=== PATIENT | female | born 1965 | race Caucasian/White ===

== ENCOUNTER 2019-10-04 03:01 | Outpatient (CLI) | payer BC, SELFPAY ==
--- NOTE | 2019-10-04 16:24 | DI.MAMMO_ITS ---
EXAM: MG MAMMO SCREENING CLINICAL HISTORY: SCREENING, Z12.31, [facility], Z00.00 TECHNIQUE: Bilateral full field digital CC and MLO mammographic images were obtained with 3D tomosyn thesis and utilizing computer aided detection (CAD). COMPARISON: Available for comparison. FINDINGS: Masses/Architectural Distortion: None seen. Microcalcifications: No suspicious pleomorphic-type are seen. Skin Thickening/Nipple Retraction: None. IMPRESSION: 1. No significant interval change with no specific features of malignancy noted. 2. Unless there is more urgent need, screening mammography is recommended, as per [employer] [employer] guidelines. ACR BI-RAD Category- 1 Negative Breast Density - Category B - Scattered areas of fibroglandular density A negative radiographic report should not delay biopsy if a dominant or clinically suspicious mass is present. Up to ten percent of cancers are not identified on mammography. A negative report may reinforce clinical impression. Adenosis and dense breasts may obscure an underlying neoplasm. False positive reports average 6 to 10%. Patient will receive a letter notifying them of these results.
== END 2019-10-04 03:21 ==
PROVIDERS: PCP Nurse Practitioner Family; Visit Provider Nurse Practitioner Family
DX: Z00.00 Encounter for general adult medical examination without abnormal findings (principal); Z12.31 Encounter for screening mammogram for malignant neoplasm of breast
CPT/HCPCS: 77063; 77067

== ENCOUNTER 2020-05-22 04:38 | Outpatient (CLI) | payer BC, SELFPAY ==
[2020-05-22 11:17] LABS: Abs Immature Grans 0.03 10^3/uL (0.0-0.06); Absolute Basophil Count 0.05 10^3/uL (0.0-0.2); Absolute Lymphocyte Count 1.69 10^3/uL (1.2-3.4); Absolute Monocyte Count 0.33 10^3/uL (0.1-0.8); Absolute Neutrophil Count 4.33 10^3/uL (1.2-6.7); Basophils % 0.8; Eosinophils % 1.5; HCT 41.5 % (36.0-46.0); HGB 13.4 g/dL (11.2-15.7); Immature Grans % 0.5; Lymphocytes % 25.9; MCHC 32.3 % (32.0-36.0); MCV 92.8 fL (80-95); MPV 9.9 fL (8.0-11.0); Monocytes % 5.1; Neutrophils % 66.2; Nucleated RBC 0 %; Platelet Count 295 10^3/uL (130-400); RBC 4.47 10^6/uL (3.93-5.22); RDW 12.8 % (11.7-14.6); WBC 6.53 10^3/uL (4.4-10.8)
[2020-05-22 12:15] LABS: ALT 38 U/L (14-59); AST 21 U/L (15-37); Albumin 4.4 g/dL (3.4-5.0); Alkaline Phosphatase 72 U/L (46-116); Anion Gap 7.4 mmol/L (3-11); BUN 13 mg/dL (7-18); Bilirubin, Total 0.7 mg/dL (0.2-1.0); CO2 29.6 mmol/L (21.0-32.0); CREATININE 0.87 mg/dL (0.55-1.02); Calcium 9.6 mg/dL (8.5-10.1); Chloride 104 mmol/L (98-107); Glucose 88 mg/dL (74-106); Potassium 4.6 mmol/L (3.5-5.1); Sodium 141 mmol/L (136-145); TSH 1.26 uIU/mL (0.36-3.74); Total Protein 7.3 g/dL (6.4-8.2)
[2020-05-22 17:14] LABS: Rheumatoid Factor <8.6 IU/mL (<12.0)
[2020-05-23 11:05] LABS: C4 Complement 20 mg/dL (13-39)
[2020-05-23 14:18] LABS: ANA Interpretation Negative (Negative)
[2020-05-24 13:01] LABS: dsDNA Ab, IgG <12.3 IU/mL (<30.0)
== END 2020-05-22 04:58 ==
PROVIDERS: PCP Nurse Practitioner Family; Visit Provider Internal Medicine Rheumatology
DX: R76.8 Other specified abnormal immunological findings in serum (principal); E06.9 Thyroiditis, unspecified
CPT/HCPCS: 36415; 80053; 84443; 85025; 86038; 86160; 86225; 86431

== ENCOUNTER 2021-05-15 03:49 | Outpatient (CLI) | payer BC, SELFPAY ==
[2021-05-15 09:43] LABS: Abs Immature Grans 0.01 10^3/uL (0.0-0.06); Absolute Basophil Count 0.05 10^3/uL (0.0-0.2); Absolute Eosinophil Count 0.16 10^3/uL (0.0-0.7); Absolute Lymphocyte Count 1.98 10^3/uL (1.2-3.4); Absolute Monocyte Count 0.36 10^3/uL (0.1-0.8); Absolute Neutrophil Count 3.69 10^3/uL (1.2-6.7); Basophils % 0.8; Eosinophils % 2.6; HCT 41.3 % (36.0-46.0); HGB 13.6 g/dL (11.2-15.7); Immature Grans % 0.2; Lymphocytes % 31.7; MCH 29.7 pg (27.0-33.0); MCHC 32.9 % (32.0-36.0); MCV 90.2 fL (80-95); MPV 9.8 fL (8.0-11.0); Monocytes % 5.8; Neutrophils % 58.9; Nucleated RBC 0 %; Platelet Count 286 10^3/uL (130-400); RBC 4.58 10^6/uL (3.93-5.22); RDW 12.7 % (11.7-14.6); RDW-SD 42.4 fL; WBC 6.25 10^3/uL (4.4-10.8)
[2021-05-15 09:45] LABS: ESR < 1 mm/hr (0-30)
[2021-05-15 11:25] LABS: ALT 38 U/L (14-59); AST 22 U/L (15-37); Albumin 4.2 g/dL (3.4-5.0); Alkaline Phosphatase 61 U/L (46-116); Anion Gap 8.7 mmol/L (3-11); BUN 14 mg/dL (7-18); Bilirubin, Total 0.6 mg/dL (0.2-1.0); C-Reactive Protein < 0.05 mg/dL (0.0-0.3); CO2 27.3 mmol/L (21.0-32.0); CREATININE 0.8 mg/dL (0.55-1.02); Calcium 9.2 mg/dL (8.5-10.1); Chloride 104 mmol/L (98-107); Glucose 85 mg/dL (74-106); Potassium 4.2 mmol/L (3.5-5.1); Sodium 140 mmol/L (136-145); Uric Acid 4.3 mg/dL (2.6-6.0)
[2021-05-15 17:14] LABS: Rheumatoid Factor <8.6 IU/mL (<12.0)
[2021-05-15 21:56] LABS: Thyroglobulin Antibody <15 U/mL (<=60); Thyroperoxidase Antibody 74 U/mL (<=60)
[2021-05-16 11:50] LABS: dsDNA Ab, IgG <12.3 IU/mL (<30.0)
[2021-05-17 14:07] LABS: ANA Interpretation Positive (Negative); ANA Titer Pattern 1:80 Homogeneous
== END 2021-05-15 03:50 | disposition home or self-care (01) ==
LOC: LBO 03:49
PROVIDERS: PCP Nurse Practitioner Family; Visit Provider Internal Medicine Rheumatology
DX: M25.50 Pain in unspecified joint (principal); E06.9 Thyroiditis, unspecified
CPT/HCPCS: 36415; 80053; 85652; 86376; 84550; 85025; 86038; 86140; 86225; 86431

== ENCOUNTER 2021-05-28 13:32 | Outpatient (REF) | payer BC, SELFPAY ==
[2021-05-28 20:06] LABS: TSH (W/Ref FT4) 1.31 uIU/mL (0.36-3.74)
[2021-05-29 16:54] LABS: T3,Free 3.1 pg/mL (2.8-5.3)
== END 2021-05-28 13:33 | disposition home or self-care (01) ==
LOC: LBN 13:32
PROVIDERS: PCP Nurse Practitioner Family; Visit Provider Nurse Practitioner Family
DX: Z13.29 Encounter for screening for other suspected endocrine disorder (principal)
CPT/HCPCS: 84443; 84481

== ENCOUNTER 2022-05-16 01:08 | Outpatient (CLI) | payer BC, SELFPAY ==
--- OUTSIDE RECORDS SUMMARY | 2022-05-16 01:30 | XMS_ITS | Encounter Summary ---
:1965 Author Organization [facility] Address [address] [place] [id number] Care Team Providers Name Role Phone Norbert Cortney FABIOLA Primary Care Provider Ki Evans MD Unavailable Reason for Visit Reason Onset Date Comments Pre-visit Orders 05/13/2021 Encounter Details Date Type Department Care Team Description 05/13/2021 Telephone [facility] Scooter Cowan Chi, MD Pre-visit Orders Rheumatology & Immunology [address], [address] [place], [place] [address] [place] [address] [phone] (Wo rk) Social History Tobacco Use Types Packs/Day Years Used Date Never Smoker Smokeless Tobacco: Never Used Alcohol Use Standard Drinks/Week Comments Yes 0 (1 standard drink = 0.6 oz pure alcoho l) 1 wine or liquor with dinner Alcohol Habits Answer Date Recorded How often do you have a drink containing Not asked alcohol? How many drinks containing alcohol do you Not asked have on a typical day when you are drinking? How often do you have six or more drinks Not asked on one occasion? Comment: 1 wine or liquor with dinner 05/18/2019 Sex Assigned at Date Recorded Not on file documented as of this encounter Functional Status Functional Status Response Date of Assessment Because of a physical, mental, or emotional condition, No 05/18/2019 does this person have difficulty doing errands alone such as visiting a doctor's office or shopping? Cognitive Status Response Date of Assessment Because of a physical, mental, or emotional condition, Yes 05/25/2020 does this person have serious difficulty concentrating, remembering, or making decisions? documented as of this encounter Miscellaneous Notes Telephone Encounter - Unique Golden RN - 05/13/2021 1654 EDT Lab orders faxed. Spoke with pt who will get lab work done before 05/22 FU appt. elephone Encounter - Scooter Cowan Chi, MD - 05/13/2021 1624 EDT Signed external lab orders. Please fax to her lab- [facility]? Her appt here is 05/22. elephone Encounter - Liz Pearce - 05/13/2021 1211 EDT Patient is calling to have her lab orders sent to [facility]. Please call to let her know when that has been done. documented in this encounter Plan of Treatment Upcoming Encounters Date Type Specialty Care Team Description 05/21/2022 Office Visit Rheumatology Scooter Cowan Chi, MD 111 [facility], [facility], [address] [place], [place] [phone] (Wo rk) documented as of this encounter Visit Diagnoses Diagnosis Positive MASSIEL (antinuclear antibody) - Pr imary Other and unspecified nonspecific immuno logical findings Thyroiditis Thyroiditis, unspecified Polyarthralgia Pain in joint, multiple sites documented in this encounter Care Teams Die Stamping Press Operator Relationship Specialty Start Date End Date Cortney Toussaint FNP PCP - General 01/20/19 [address] [place], [place] [address] Ki Evans MD 03/12/18 [address] [place] [address] documented as of this encounter
--- OUTSIDE RECORDS SUMMARY | 2022-05-16 01:30 | XMS_ITS | Encounter Summary ---
:1965 Author Organization [facility] Address [address] [place] [address] Care Team Providers Name Role Phone FreedomCortney grande FABIOLA Primary Care Provider Ki Evans MD Unavailable Reason for Visit Reason Comments Follow-up 1 year Joint Pain Right knee pain, left should er, Encounter Details Date Type Department Care Team Description 05/22/2021 Office Visit [facility] Scooter Cowan Chi, MD Primary osteoarthritis involving multipl e joints (Primary Dx); Rheumatology & [address] [place] [address] Positive AN A (antinuclear antibody); Immunology - [facility] Thyroiditis [address], [address] [place], [place] [address] [place] [address] [phone] Social History Tobacco Use Types Packs/Day Years [...] on file documented as of this encounter Last Filed Vital Signs Vital Sign Reading Time Taken Comments Blood Pressure 118/62 05/22/2021 1241 EDT Pulse 68 05/22/2021 1241 EDT Temperature - - Respiratory Rate 16 05/22/2021 1241 EDT Oxygen Saturation - - Inhaled Oxygen Concentration - - Weight 79.4 kg (175 lb) 05/22/2021 1241 EDT Height 172.1 cm (5' 7.75) 05/22/2021 1241 EDT Body Mass Index 26.81 05/22/2021 1241 EDT documented in this encounter Functional Status Functional Status Response Date of Assessment Because of a physical, mental, or emotional condition, No 05/18/2019 does this person have difficulty doing errands alone such as visiting a doctor's office or shopping? Cognitive Status Response Date of Assessment Because of a physical, mental, or emotional condition, No 05/22/2021 does this person have serious difficulty concentrating, remembering, or making decisions? documented as of this encounter Patient Instructions Patient InstructionsScooter Cowan Chi, MD - 05/22/2021 13:00 EDT Continue current meds. documented in this encounter Progress Notes Scooter Cowan Chi, MD - 05/22/2021 1300 EDT Images from the original note were not included. Subjective: Patient ID: Eloise Burgos is an 55 y.o. female. Chief Complaint Patient presents with ??? Follow-up 1 year ??? Joint Pain Right knee pain, left shoulder, Assessment at last visit: Osteoarthritis- Joint pains have been mild on hydroxychloroquine. Because she has had increased diarrhea in recent months, advised she try decreasing hydroxychloroquine to 200 mg once a day from twice daily. Continue annual eye exams for hydroxychloroquine. Past history of + MASSIEL, low + dsDNA which have all normalized and patient has never met criteria for lupus or other autoimmune disease.. Thyroiditis- Manifest by elevated TPO antibody. PCP just needs to keep an eye on the TSH annually. Since last visit: 05/25/2020 She con't hydroxychloroquine bid dosing since her diarrhea improved with gluten free diet. Has R knee pain after prolonged kneeling painting rooms in the house. Left shoulder aches with use. Taking CBDwith tumeric which helps. No rashes, rare oral ulcer. Denies Raynaud's. Denies any other joint pains or swelling. AM stiffness: 15 min Physical activity: morning yoga. - her daily activities keep her active. Takes stairs frequently at home. Has 2 grown kids in their 20s away from home as well as 2 teens at home. 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 She babysits 1 yo, 3 yo granddaughters. Has help with housechores. Patient Active Problem List Diagnosis ??? Primary osteoarthritis involving multiple joints No past medical history on file. No past surgical history on file. Outpatient Medications Marked as Taking for the 05/22/21 encounter (Office Visit) with Scooter Cowan Chi, MD Medication Sig Dispense Refill ??? acetaminophen (TYLENOL) 500 mg tablet Take 500 mg by mouth every 6 hours as needed for Pain. ??? VAISHALI ASPIRIN ORAL Take 81 mg by mouth. ??? calcium carbonate 500 mg/5 mL (1,250 mg/5 mL) suspension Take 1,200 mg by mouth daily. ??? ergocalciferol, vitamin D2, (VITAMIN D ORAL) Take 1,000 Units by mouth. ??? glucosamine HCl/chondroitin lipscomb (GLUCOSAMINE-CHONDROITIN ORAL) Take 1,500 mg by mouth. ??? hydrOXYchloroQUINE (PLAQUENIL) 200 mg tablet Take 1 Tab by mouth 2 times daily. 180 Tab 3 ??? Zudxm-8-VUP-EPA-Fish Oil (FISH OIL) 1,000 mg (120 mg-180 mg) capsule Take 1,200 Caps by mouth. No Known Allergies A 10 pt review of system was performed and pertinent items noted in HPI. Objective: BP 118/62 Pulse 68 Resp 16 Ht 172.1 cm (67.75) Wt 79.4 kg (175 lb) BMI 26.81 kg/m?? Physical Exam Vitals reviewed. Constitutional: General: She is not in acute distress. Comments: Cheerful, healthy-appearing middle-aged female. HENT: Head: No signs of injury. Nose: Nose normal. Mouth/Throat: Mouth: Mucous membranes are moist. Pharynx: Oropharynx is clear. Eyes: Extraocular Movements: EOM normal. Conjunctiva/sclera: Conjunctivae normal. Pupils: Pupils are equal, round, and reactive to light. Neck: Thyroid: No thyromegaly. Cardiovascular: Rate and Rhythm: Normal rate and regular rhythm. Heart sounds: Normal heart sounds. No murmur heard. Pulmonary: Effort: Pulmonary effort is normal. No respiratory distress. Abdominal: Palpations: Abdomen is soft. There is no hepatosplenomegaly. Tenderness: There is no abdominal tenderness. Musculoskeletal: Comments: a complete musculoskeletal exam of the upper and lower extremities was performed and was normal except for findings shown on the homonculus: Skin: General: Skin is warm. Findings: No rash. Neurological: Mental Status: She is alert and oriented to person, place, and time. Cranial Nerves: No cranial nerve deficit. Psychiatric: Mood and Affect: Mood and affect normal. Behavior: Behavior normal. 05/15/2021 09:28 Sodium, External 140 Potassium, External 4.2 Chloride, External 104 CO2, External 27.3 BUN, External 14 Creatinine, External 0.8 Glucose, Serum, External 85 Calcium, External 9.2 Total Protein, External 7.0 Albumin, External 4.2 AST, External 22 ALT, External 38 Bilirubin, Total, External 0.6 Alkaline Phosphatase, External 61 Uric Acid, External 4.3 C-Reactive Protein, External <0.05 GFR, Calculated, External >=60.00 Thyroglobulin Ab <15 Thyroperoxidase Ab 74 (H) WBC, External 6.25 Hemoglobin, External 13.6 HCT, External 41.3 MCV, External 90.2 PLT, External 286 Sed. Rate Westergren, External <1 MASSIEL Titer Pattern 1:80 Homogeneous Anti DNA (DS) <12.3 Rheumatoid Factor <8.6 05/22/2020 11:07 MASSIEL Interpretation Negative C4 Complement 20 Anti DNA (DS) <12.3 Rheumatoid Factor <8.6 TG antibody negative TPO antibody 300 Cardiolipin antibodies negative Lupus anticoagulant negative UA negative 05/18/2019 11:26 MASSIEL Interpretation Negative C4 Complement 22 CCP Antibodies <2.5 Anti DNA (DS) 38.4 (H) Rheumatoid Factor 9 SSA Antibody 1.5 SSB Antibody 4.8 TRADESHOW WORKER Antibody 1.9 Sm (Hoover) Antibody 2.1 Assessment: 1. Primary osteoarthritis involving multiple joints 2. Positive MASSIEL (antinuclear antibody) 3. Thyroiditis Plan: Osteoarthritis- Causing most of her joint pains which are less severe since she started hydroxychloroquine. Continue hydroxychloroquine 400 mg daily, along with annual eye exam. Continue regular low impact physical activity. Low + MASSIEL 80- Associated with thyroiditis; no other autoimmune condition identified such as lupus, Sjogren's, rheumatoid arthritis or scleroderma. PCP should monitor TSH once or twice a year for the thyroiditis. Patient Instructions Continue current meds. Barriers to learning identified: No Patient verbalizes understanding and agrees with plan Yes Return in about 1 year (around 05/22/2022) for in person. (Portions of this document may have been prepared with speech recognition software or keyboard data collection specialist techniques. Minor irregularities or keyboarding misprints may be present.) Scooter Cowan MD 05/22/2021 documented in this encounter Plan of Treatment Upcoming Encounters Date Type Specialty Care Team Description 05/21/2022 Office Visit Rheumatology Scooter Cowan Chi, MD 111 [facility], [facility], [address] [place], [place] [phone] (Wo rk) documented as of this encounter Visit Diagnoses Diagnosis Primary osteoarthritis involving multipl e joints - Primary Positive MASSIEL (antinuclear antibody) Other and unspecified nonspecific immuno logical findings Thyroiditis Thyroiditis, unspecified documented in this encounter Care Teams Group Leader [employer] Testing Relationship Specialty Start Date End Date Cortney Toussaint FNP PCP - General 01/20/[address] [place], [place] [address] Ki Evans MD 03/12/18 [address] [place] [address] documented as of this encounter
--- OUTSIDE RECORDS SUMMARY | 2022-05-16 01:30 | XMS_ITS | Encounter Summary ---
:1965 Author Organization [facility] Address [address] [place] [address] Care Team Providers Name Role Phone Norbert Cortney FABIOLA Primary Care Provider Ki Evans MD Unavailable Reason for Visit Reason Comments Other Encounter Details Date Type Department Care Team Description 08/20/2021 [facility] Scooter Cowan Chi, MD Other Rheumatology & Immunology - [address] [place] [address], [address] [place], [place] [address] [place] [phone] (Wo rk) Social History Tobacco Use Types [...] making decisions? documented as of this encounter Ordered Prescriptions Prescription Sig Dispensed Refills Start Date End Date hydrOXYchloroQUINE TAKE 1 TABLET BY 180 Tablet 3 08/20/2021 (PLAQUENIL) 200 mg tablet MOUTH TWICE DAILY documented in this encounter Miscellaneous Notes Telephone Encounter - Jonathan Joe RN - 08/20/2021 0914 EST Requested Prescriptions Pending Prescriptions Disp Refills ??? hydrOXYchloroQUINE (PLAQUENIL) 200 mg tablet [Pharmacy Med Name: HYDROXYCHLOROQUINE 200 MG TAB] 180 Tablet 3 Sig: TAKE 1 TABLET BY MOUTH TWICE DAILY [id number] - [place], [place] - [address] [place] [address] Confirmed Pharmacy? Yes Patient out of medication? Unknown Last Refill Date: 09/03/20 Refills left? (explain exceptions requiring early refill) Yes, Recent Visits Date Type Provider Dept 05/22/21 Office Visit Scooter Cowan Chi, MD Ep5 Rheumatology Showing recent visits within past 540 days with a meds authorizing provider and meeting all other requirements Future Appointments No visits were found meeting these conditions. Showing future appointments within next 150 days with a meds authorizing provider and meeting all other requirements -Informed pt. Need annual eye exam per refill protocol -Per pt. Eye exam scheduled for 09/09/2021 Patient verbalized understanding with no barriers to learning and agrees with plan of care. Future appointment: Already Scheduled JONATHAN JOE RN 08/20/2021 9:14 documented in this encounter Plan of Treatment Upcoming Encounters Date Type Specialty Care Team Description 05/21/2022 Office Visit Rheumatology Scooter Cowan Chi, MD 111 [facility], [facility], [address] [place], [place] [phone] (Wo rk) documented as of this encounter Visit Diagnoses Not on filedocumented in this encounter Discontinued Medications Medication Sig Discontinue Reason Start Date End Date hydrOXYchloroQUINE Take 1 Tab by 09/03/2020 08/20/20 21 (PLAQUENIL) 200 mg tablet mouth 2 times daily. documented as of this encounter Care Teams Clinical Business Manager Relationship Specialty Start Date End Date Cortney Toussaint FNP PCP - General 01/20/19 [address] [facility], [place] [phone] Ki Evans MD 03/12/18 [address] [place], [place] [address] documented as of this encounter
--- OUTSIDE RECORDS SUMMARY | 2022-05-16 01:30 | XMS_ITS | Encounter Summary ---
:1965 Author Organization [facility] Address [address] [place] [address] Care Team Providers Name Role Phone Norbert Cortney FABIOLA Primary Care Provider Ki Evans MD Unavailable Reason for Visit Reason Onset Date Comments Medication Questions 07/20/2019 Incorrect dosage on hydroxychloroquine (PLAQUENIL) 200 mg tablet Encounter Details Date Type Department Care Team Description 07/20/2019 Telephone [facility] Scooter Cowan Chi, MD Medication Questions Rheumatology & [address] [place] (Incorrect dosage on Immunology - [facility] hydroxychloroquine [facility] (PLAQUENIL) 200 mg tablet) 111 [facility], [address] [place], [place] [address] [place] [address] [phone] Social History Tobacco Use Types Packs/Day Years [...] condition, No 05/18/2019 does this person have serious difficulty concentrating, remembering, or making decisions? documented as of this encounter Ordered Prescriptions Prescription Sig Dispensed Refills Start Date End Date hydroxychloroquine Take 1 Tab by 180 Tab 3 07/20/2019 (PLAQUENIL) 200 mg tablet mouth 2 times daily. documented in this encounter Miscellaneous Notes Telephone Encounter - Tram Alvarez - 07/20/2019 1351 EDT Patient calling because hydroxychloroquine (PLAQUENIL) 200 mg tablet was refilled through [facility], dosage instructions need to indicate she takes it 2x per day, not 1x per day Patient did chart picker bottle at pharmacy, didn't notice until she got home. Has enough medication for now, but will run out early Pls call back documented in this encounter Plan of Treatment Upcoming Encounters Date Type Specialty Care Team Description 05/21/2022 Office Visit Rheumatology Scooter Cowan Chi, MD 111 [facility], [facility], [address] [place], [place] [phone] (Wo rk) documented as of this encounter Visit Diagnoses Not on filedocumented in this encounter Discontinued Medications Medication Sig Discontinue Reason Start Date End Date hydroxychloroquine Take 1 Tab by Reorder 07/18/2019 07/20/20 19 (PLAQUENIL) 200 mg tablet mouth daily. documented as of this encounter Care Teams Entrepreneurship Program Director Relationship Specialty Start Date End Date Cortney Toussaint FNP PCP - General 01/20/19 [address] [place], [place] [address] Ki Evans MD 03/12/18 [address] [place] [address] documented as of this encounter
--- OUTSIDE RECORDS SUMMARY | 2022-05-16 01:30 | XMS_ITS | Encounter Summary ---
:1965 Author Organization [facility] Address [address] [place] [address] Care Team Providers Name Role Phone Norbert Cortney FABIOLA Primary Care Provider Ki Evans MD Unavailable Reason for Visit Reason Onset Date Comments Medications Refill 09/03/2020 Encounter Details Date Type Department Care Team Description 09/03/2020 Refill [facility] Annette Muñoz RN Vt dications Refill Rheumatology & Immunology - [facility] [address] [place] [address] Social History Tobacco Use Types Packs/Day Years [...] Dispensed Refills Start Date End Date hydrOXYchloroQUINE Take 1 Tab by 180 Tab 3 09/03/202006/2021 (PLAQUENIL) 200 mg tablet mouth 2 times daily. documented in this encounter Plan of Treatment Upcoming Encounters Date Type Specialty Care Team Description 05/21/2022 Office Visit Rheumatology Scooter Cowan Chi, MD 111 [facility], [facility], [address] [place], [place] [phone] (Wo rk) documented as of this encounter Visit Diagnoses Not on filedocumented in this encounter Discontinued Medications Medication Sig Discontinue Reason Start Date End Date hydroxychloroquine Take 1 Tab by Reorder 07/20/2019 09/03/20 20 (PLAQUENIL) 200 mg tablet mouth 2 times daily. documented as of this encounter Care Teams Aircraft Pneudraulic Systems Mechanic Relationship Specialty Start Date End Date Cortney Toussaint FNP PCP - General 01/20/19 [address] [place] [address] Ki Evans MD 03/12/18 [address] [place] [address] documented as of this encounter
--- OUTSIDE RECORDS SUMMARY | 2022-05-16 01:30 | XMS_ITS | Encounter Summary ---
:1965 Author Organization [facility] Address [address] [place] [address] Care Team Providers Name Role Phone FreedomCortney grande FABIOLA Primary Care Provider Ki Evans MD Unavailable Reason for Visit Reason Onset Date Comments Medications Refill 07/18/2019 Encounter Details Date Type Department Care Team Description 07/18/2019 Refill [facility] Scooter Cowan Chi, MD Medications Refill Rheumatology & Immunology [address], [address] [place], [place] [address] [place] [address] [phone] (Wo rk) Social History Tobacco Use [...] End Date hydroxychloroquine Take 1 Tab by 90 Tab 3 07/18/201906/2019 (PLAQUENIL) 200 mg tablet mouth daily. documented in this encounter Miscellaneous Notes Telephone Encounter - Julieth Wall - 07/18/2019 0921 EDT Medication(s) Requested hydroxychloroquine (PLAQUENIL) 200 mg tablet [facility] - [place], [place] - [address] [place] [address]?[phone] Next Visit Date Visit date not found Out of Medication? No Julieth Wall 07/18/2019 9:21 documented in this encounter Plan of Treatment Upcoming Encounters Date Type Specialty Care Team Description 05/21/2022 Office Visit Rheumatology Scooter Cowan Chi, MD 111 [facility], [facility], [address] [place], [place] [phone] (Wo rk) documented as of this encounter Visit Diagnoses Not on filedocumented in this encounter Discontinued Medications Medication Sig Discontinue Reason Start Date End Date hydroxychloroquine Take 200 mg by Reorder 019 (PLAQUENIL) 200 mg tablet mouth daily. documented as of this encounter Care Teams Poiser Relationship Specialty Start Date End Date Cortney Toussaint FNP PCP - General 01/20/19 [address] [place] [address] Ki Evans MD 03/12/18 [address] [place] [address] documented as of this encounter
--- OUTSIDE RECORDS SUMMARY | 2022-05-16 01:30 | XMS_ITS | Encounter Summary ---
:[address] [facility] Address [address] [place] [address] Care Team Providers Name Role Phone Norbert Cortney HICKS Primary Care Provider Ki Evans MD Unavailable Encounter Details Date Type Department Care Team Description 05/22/2020 Lab Requisition [facility] Outr Resulting Lab, Pathology & Laboratory Provider [facility] [address] [id number] Social History Tobacco Use Types Packs/Day Years [...] Assigned at Date Recorded Not on file COVID-19 Exposure Response Date Recorded In the last month, have you been in contact with No / Unsure 05/25/2020 13:20 EDT someone who was confirmed or suspected to have Coronavirus / COVID-19? documented as of this encounter Functional Status [...] making decisions? documented as of this encounter Plan of Treatment Upcoming Encounters Date Type Specialty Care Team Description 05/21/2022 Office Visit Rheumatology Scooter Cowan Chi, MD 111 [facility], [facility], [address] [place], [place] [address] (Wo rk) documented as of this encounter Procedures Procedure Name Priority Date/Time Associated Comments Diagnosis HOLD SST Today 05/22/2020 11:07 Results for this EDT procedure are i n the results section. HOLD SST Today 05/22/2020 11:07 Results for this EDT procedure are i n the results section. ANTI DNA (DOUBLE Today 05/22/2020 11:07 Results for this STRANDED) EDT procedure are i n the results section. RHEUMATOID FACTOR Today 05/22/2020 11:07 Result s for this EDT procedure are i n the results section. C4 COMPLEMENT Today 05/22/2020 11:07 Results fo r this EDT procedure are i n the results section. ANTI NUCLEAR AB Today 05/22/2020 11:07 Results for this (MASSIEL), IFA EDT procedure are i n the results section. documented in this encounter Results HOLD SST (05/22/2020 11:07 EDT) Pathologist Sig nature Hold Hold [facility] Specimen Blood - Venous blood (substance) Performing Organization Address [facility]/ZIP Code Phon e Number [facility] [address] [place] [address] SERVICES HOLD SST (05/22/2020 11:07 EDT) Pathologist Sig nature Hold Hold [facility] Specimen Blood - Venous blood (substance) Performing Organization Address City/[facility]/ZIP Code Phon e Number [facility] [address] [place] [address] SERVICES RHEUMATOID FACTOR (05/22/2020 11:07 EDT) Pathologist Sig nature Rheumatoid Factor <8.6 <12.0 IU/mL [facility] SERVICES Specimen Blood - Venous blood (substance) Performing Organization Address City/[facility]/ZIP Code Phon e Number [facility] [address] [place] [address] SERVICES ANTI DNA (DOUBLE STRANDED) (05/22/2020 11:07 EDT) Anti-DNA (Double <12.3 <30.0 IU/mL [facility] Stranded) Comment: LABORATORY ? SERV ICES ? Negative: ??<30.0 IU/mL ? Borderline Positive: ??30.0 - 75.0 IU/mL ? Positive: ??>75.0 IU/mL Results were obtained with ivy mckinney [employer] QUANTA Lite dsDNA SC GABRIELA assay on the [employer] [address]. Specimen Blood - Venous blood (substance) Performing Organization Address City/State/ZIP Code Phon e Number [facility] [address] [place] [address] SERVICES C4 COMPLEMENT (05/22/2020 11:07 EDT) Pathologist Sig nature C4 Complement 20 13 - 39 mg/dL [facility] ORY SERVICES Specimen Blood - Venous blood (substance) Performing Organization Address City/[facility]/ZIP [facility] Phon e Number [facility] [address] [place] [address] SERVICES ANTI NUCLEAR AB (MASSIEL), IFA (05/22/2020 11:07 EDT) Pathologist Sig nature MASSIEL Interpretation Negative Negative [facility] Specimen Blood - Venous blood (substance) Narrative [facility] - 05/23/2020 14:15 EDT Results were obtained with the [employer] NOV A Lite HEp-2 MASSIEL Kit by indirect immunofluorescence. Performing Organization Address City/State/ZIP Code Phon e Number [facility] [address] [place] [address] SERVICES documented in this encounter Visit Diagnoses Not on filedocumented in this encounter Care Teams Commercial Fisherman Relationship Specialty Start Date End Date Cortney Toussaint FNP PCP - General 01/20/19 [place] [address] Ki Evans MD 03/12/18 [address] [place] [address] documented as of this encounter
--- OUTSIDE RECORDS SUMMARY | 2022-05-16 01:30 | XMS_ITS | Clinical Summary ---
:1965 Author Organization [facility] Address [address] [place] [address] Care Team Providers Name Role Phone Cortney Toussaint Primary Care Provider Ki Evans MD Unavailable Allergies No known active allergies Medications Medication Sig Dispensed Refills Start Date End Date Status Ukccd-8-DLE-EPA-Fish Oil Take 1,200 0 Active (FISH OIL) 1,000 mg (120 Caps by mg-180 mg) capsule mouth. calcium carbonate 500 mg/5 Take 1,200 mg 0 Active mL (1,250 mg/5 mL) by mouth suspension daily. ergocalciferol, vitamin Take 1,000 0 Active D2, (VITAMIN D ORAL) Units by mouth. glucosamine Take 1,500 mg 0 Acti ve HCl/chondroitin lipscomb by mouth. (GLUCOSAMINE-CHONDROITIN ORAL) VAISHALI ASPIRIN ORAL Take 81 mg by 0 Active mouth. acetaminophen (TYLENOL) Take 500 mg 0 Active 500 mg tablet by mouth every 6 hours as needed for Pain. hydrOXYchloroQUINE TAKE 1 TABLET 180 Tablet 3 08/20/2021 Active (PLAQUENIL) 200 mg tablet BY MOUTH TWICE DAILY Active Problems Problem Noted Date Primary osteoarthritis involving multiple joints 05/18 Encounters Date Type Specialty Care Team Description 05/13/2022 Telephone Rheumatology Scooter Cowan Chi, MD Pre-visit O rders (labs to be done elsewhere) from Last 3 Months Immunizations Name Administration Dates Next Due Covid-19 mRNA Vaccine (MODERNA COVID-19) PF 0.5 ml IM 2020, 01/29/2021 (12 yrs+) Family History Medical History Relation Name Comments Arthritis-Osteo Mother Psoriasis Paternal Grandmother Relation Name Status Comments Mother Paternal Grandmother Social History Tobacco Use Types Packs/Day Years [...] Assigned at Date Recorded Not on file Last Filed Vital Signs Vital Sign Reading Time Taken Comments Blood Pressure 118/62 05/22/2021 1241 EDT Pulse 68 05/22/2021 1241 EDT Temperature - - Respiratory Rate 16 05/22/2021 1241 EDT Oxygen Saturation - - Inhaled Oxygen Concentration - - Weight 79.4 kg (175 lb) 05/22/2021 1241 EDT Height 172.1 cm (5' 7.75) 05/22/2021 1241 EDT Body Mass Index 26.81 05/22/2021 1241 EDT Plan of Treatment Upcoming Encounters Date Type Specialty Care Team Description 05/21/2022 Office Visit Rheumatology Scooter Cowan Chi, MD 111 [facility], [facility], [address] [place], [place] [address] (Wo rk) Health Maintenance Due Date Last Done Comments Hepatitis C Screen 1965 COVID-19 Vaccine (3 - Booster for Moderna 07/29/20212020, 01/29/2021 series) Insurance Payer Benefit Plan / Subscriber ID Effective Dates Phone Addre ss Type Group [place] [id number] 2018-Present [address] [place] [address] Eloise Burgos Personal/Family Self 1965 [address] ([address]) [place] [address] Eloise Burgos Personal/Family Self 1965 [address] ([address]) [place] [address] Advance Directives For more information, please contact: [phone] Documents on File Type Date Recorded 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
--- OUTSIDE RECORDS SUMMARY | 2022-05-16 01:30 | XMS_ITS | Encounter Summary ---
:[address] [facility] Address [address] [place] [address] Care Team Providers Name Role Phone Cortney Toussaint FABIOLA Primary Care Provider Ki Evans MD Unavailable Reason for Referral Laboratory Services (Routine/Next Available) - New Request Specialty Diagnoses / Procedures Referred By Contact Refer red To Contact Diagnoses Thyroiditis Scooter Cowan Chi, MD Procedures THYROID ANTIBODIES [address] [phone] Referral ID Status Reason Start Date Expiration Date Visits V isits Requested Authorized [id number] New Request 05/13/2022 1 1 aboratory Services (Routine/Next Available) - New Request Specialty Diagnoses / Procedures Referred By Contact Refer red To Contact Diagnoses Thyroiditis Scooter Cowan Chi, MD Procedures TSH [address] [phone] Referral ID Status Reason Start Date Expiration Date Visits V isits Requested Authorized [id number] New Request 05/13/2022 1 1 aboratory Services (Routine/Next Available) - New Request Specialty Diagnoses / Procedures Referred By Contact Refer red To Contact Diagnoses Polyarthralgia Scooter Cowan Chi, MD Procedures SED RATE [address] [phone] Referral ID Status Reason Start Date Expiration Date Visits V isits Requested Authorized [id number] New Request 05/13/2022 1 1 aboratory Services (Routine/Next Available) - New Request Specialty Diagnoses / Procedures Referred By Contact Refer red To Contact Diagnoses Radha Cowan Chi Chi, MD Procedures C REACTIVE PROTEIN [address] [phone] Referral ID Status Reason Start Date Expiration Date Visits V isits Requested Authorized [id number] New Request 05/13/2022 1 1 aboratory Services (Routine/Next Available) - New Request Specialty Diagnoses / Procedures Referred By Contact Refer red To Contact Diagnoses Radha Cowan Chi Chi, MD Procedures COMPLETE BLOOD COUNT AND DIFFERENTIAL [address] [phone] Referral ID Status Reason Start Date Expiration Date Visits V isits Requested Authorized [id number] New Request 05/13/2022 1 1 aboratory Services (Routine/Next Available) - New Request Specialty Diagnoses / Procedures Referred By Contact Refer red To Contact Diagnoses Radha Cowan Chi Chi, MD Procedures COMPREHENSIVE METABOLIC PANEL (CMP) [address] [phone] Referral ID Status Reason Start Date Expiration Date Visits V isits Requested Authorized [id number] New Request 05/13/2022 1 1 Reason for Visit Reason Onset Date Comments Pre-visit Orders 05/13/2022 labs to be done else where Encounter Details Date Type Department Care Team Description 05/13/[address] [facility] Scooter Cowan Chi, MD Pre-visit Orders Rheumatology & [address] [place] [address] (labs to be done Immunology - [address] elsewhere) [facility], [address] [facility], [address] [place] [address] [place], [place] [phone] (Wo rk) Social History Tobacco Use [...] this encounter Miscellaneous Notes Telephone Encounter - Dana Varela RN - 05/13/2022 1054 EDT Spoke with Eloise and let her know we faxed lab orders to [facility]. elephone Encounter - Scooter Cowan Chi, MD - 05/13/2022 1013 EDT Signed external orders- can fax to [facility] lab and let pt know. elephone Encounter - Unique Golden RN - 05/13/2022 1000 EDT Pt requesting lab orders to be faxed to [facility]. Has yearly FU with Dr. Cowan on 05/21. Normally pt has multiple labs done at yearly visit. Are there any specific labs needed prior to 05/21 FU? Please advise. elephone Encounter - Darlene Damon - 05/13/2022 0952 EDT Patient calling to request that lab orders from be sent to [facility]. Patient hoping to get labs completed prior to upcoming appt with . If any questions or concerns, please call back to patient to advise. documented in this encounter Plan of Treatment Upcoming Encounters Date Type Specialty Care Team Description 05/21/2022 Office Visit Rheumatology Scooter Cowan Chi, MD 111 [facility], [facility], [address] [place], [place] [address] (Wo rk) Scheduled Orders Name Type Priority Associated Diagnoses Order S chedule COMPREHENSIVE METABOLIC Lab Routine Polyarthralgia Ex pected: 05/13/2022 PANEL (CMP) (Approximate), Expires: 2022 COMPLETE BLOOD COUNT AND Lab Routine Polyarthralgia E xpected: 05/13/2022 DIFFERENTIAL (Approximate), Expires: 2022 C REACTIVE PROTEIN Lab Routine Polyarthralgia Expecte d: 05/13/2022 (Approximate), Expires: 2021 SED RATE Lab Routine Polyarthralgia Expected: 11/2021 (Approximate), Expires: 2021 TSH Lab Routine Thyroiditis Expected: 05/13 (Approximate), Expires: 2022 THYROID ANTIBODIES Lab Routine Thyroiditis Expected: 05/13/2022 (Approximate), Expires: 2022 documented as of this encounter Visit Diagnoses Diagnosis Polyarthralgia - Primary Pain in joint, multiple sites Thyroiditis Thyroiditis, unspecified documented in this encounter Care Teams Glucose And Syrup Weigher Relationship Specialty Start Date End Date Cortney Toussaint FNP PCP - General 01/20/19 [address] [facility] [place] [address] Ki Evans MD 03/12/18 [address] [place] [address] documented as of this encounter
--- OUTSIDE RECORDS SUMMARY | 2022-05-16 01:30 | XMS_ITS | Encounter Summary ---
:1965 Author Organization [facility] Address [address] [place] [address] Care Team Providers Name Role Phone Norbert Cortney FABIOLA Primary Care Provider Ki Evans MD Unavailable Encounter Details Date Type Department Care Team Description 05/20/2021 Orders Only [facility] Scooter Cowan Chi, MD Rheumatology & Immunology [address], [address] [place], [place] [address] [place] [address] [phone] (Wo rk) Social History Tobacco Use [...] Visit Rheumatology Scooter Cowan Chi, MD 111 [facility], [facility], [address] [place] [address] (Wo rk) documented as of this encounter Procedures Procedure Name Priority Date/Time Associated Comments Diagnosis SED RATE Routine 05/15/2021 9:28 Results for this EDT procedure are i n the results section. COMPLETE BLOOD COUNT Routine 05/15/2021 9:28 Resu lts for this AND DIFFERENTIAL EDT procedure a re in the results section. C REACTIVE PROTEIN Routine 05/15/2021 9:28 Result s for this EDT procedure are i n the results section. URIC ACID Routine 05/15/2021 9:28 Results for this EDT procedure are i n the results section. COMPREHENSIVE Routine 05/15/2021 9:28 Results for this METABOLIC PANEL (CMP) EDT proced ure are in the results section. documented in this encounter Results COMPLETE BLOOD COUNT AND DIFFERENTIAL (05/15/2021 9:28 EDT) Pathologist Sig nature WBC, External 6.25 [facility] RBC, External 4.58 [facility] Hemoglobin, External 13.6 [facility] HCT, External 41.3 [facility] MCV, External 90.2 [facility] MCH, External 29.7 [facility] MCHC, External 32.9 [facility] PLT, External 286 [facility] RDW-CV, External 12.7 [facility] Neutrophils, External 58.9 [facility] Lymphocytes, External 31.7 [facility] Monocytes, External 5.8 [facility] Eosinophils, External 2.6 [facility] Basophils, External 0.8 [facility] ABS Neutrophils, 3.69 [facility] ABS Lymphs, External 1.98 [facility] ABS Monocytes, 0.36 [facility] ABS Eosinophils, 0.16 [facility] ABS Basophils, 0.05 [facility] Specimen Blood - Venous blood (substance) Performing Organization Address City/[facility]/ZIP [facility] Phon e Number [facility] SED. RATE:WESTERGREN (05/15/2021 9:28 EDT) Pathologist Sig nature Sed. Rate Westergren, <1 [facility] Specimen Blood - Venous blood (substance) Performing Organization Address City/[facility]/ZIP [facility] Phon e Number [facility] C REACTIVE PROTEIN (05/15/2021 9:28 EDT) Pathologist Sig [facility] C-Reactive Protein, <0.05 [facility] Specimen Blood - Venous blood (substance) Performing Organization Address [facility] Phon e Number [facility] URIC ACID (05/15/2021 9:28 EDT) Pathologist [facility] Uric Acid, External 4.3 [facility] Specimen Blood - Venous blood (substance) Performing Organization Address [facility] Phon e Number [facility] COMPREHENSIVE METABOLIC PANEL (CMP) (05/15/2021 9:28 EDT) Pathologist Sig [facility] GFR, Calculated, >=60.00 [facility] Glucose, Serum, 85 [facility] Albumin, External 4.2 [facility] Total Alkaline 61 [facility] Phosphatase, External [facility] L AB ALT, External 38 [facility] AST, External 22 [facility] BUN, External 14 [facility] Calculated Calcium, [facility] Calcium, External 9.2 [facility] Chloride, External 104 [facility] CO2, External 27.3 [facility] Creatinine, External 0.8 [facility] Fasting?, External [facility] Potassium, External 4.2 [facility] Sodium, External 140 [facility] Total Protein, 7.0 [facility] Bilirubin, Total, 0.6 [facility] Specimen Blood - Venous blood (substance) Performing Organization Address City/[facility]/ZIP [facility] Phon e Number 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
--- OUTSIDE RECORDS SUMMARY | 2022-05-16 01:30 | XMS_ITS | Encounter Summary ---
:[address] [facility] Address [address] [place] [address] Care Team Providers Name Role Phone Norbert Cortney FABIOLA Primary Care Provider Ki Evans MD Unavailable Reason for Visit Reason Onset Date Comments Update 05/23/2021 Covid Vaccine Encounter Details Date Type Department Care Team Description 05/23/2021 Telephone [facility] Scooter Cowan Chi, MD Update (Covid Rheumatology & [address] [place] Vaccine) Immunology - [address], [address] [place], [place] [address] [place] [address] [phone] (Wo rk) Social History Tobacco Use [...] this encounter Miscellaneous Notes Telephone Encounter - Avis Gunn - 05/23/2021 0948 EDT Patient calling to report the dates of her vaccine. She had the first dose on 01-29-21 and the second on [id number] signed by Avis Gunn at 05/23/2021 9:50 EDTdocumented in this encounter Plan of Treatment Upcoming Encounters Date Type Specialty Care Team Description 05/21/2022 Office Visit Rheumatology Scooter Cowan Chi, MD 111 [facility], [facility], [facility] [address] [place], [place] [address] (Wo rk) documented as of this encounter Visit Diagnoses Not on filedocumented in this encounter Care Teams Can Top Setter Relationship Specialty Start Date End Date Cortney Toussaint FNP PCP - General 01/20/19 [address] [place] [address] Ki Evans MD 03/12/18 [address] [place] [address] documented as of this encounter
--- OUTSIDE RECORDS SUMMARY | 2022-05-16 01:30 | XMS_ITS | Encounter Summary ---
:1965 Author Organization [facility] Address [address] [place] [address] Care Team Providers Name Role Phone FreedomCortney grande FABIOLA Primary Care Provider Ki Evans MD Unavailable Reason for Visit Reason Comments Joint Pain shoulders, hips Telemedicine Video Visit Encounter Details Date Type Department Care Team Description 05/25/2020 Telemedicine [facility] Scooter Cowan Chi, MD Primary osteoarthritis involving multipl e joints (Primary Dx); Rheumatology & [address] [place] [address] Thyroiditis Immunology - [address], [address] [place], [place] [id number] [place] [address] [phone] Social History Tobacco Use Types Packs/Day [...] Instructions Patient InstructionsScooter Cowan Chi, MD - 05/25/2020 14:00 EDT Try decreasing hydroxychloroquine to 1 pill daily and see if that improves the diarrhea after 3 weeks or so. Have your primary provider check a TSH once or twice a year. documented in this encounter Progress Notes Darling Grullon MA - 05/25/2020 1400 EDT REVIEW OF SYSTEMS: Yes No Yes No Fever X Joint pain x Weight gain or loss pounds (lbs) Duration of AM joint stiffness hours / min Eye pain or dryness X Numbness/tingling X Mouth or nose sores X Heart burn / Nausea X Chest pain X Diarrhea x Shortness of Breath X Blood in stool X Cough X Burning on urination X Skin rash X Hand/Foot color change in cold X Are our immunization records accurate per patient report? (i.e. influenza, pneumococcal, shingles) Yes No If no, note change(s) below and update record yes Scooter cronin Chi, MD - 05/25/2020 1400 EDT Subjective: Patient ID: Eloise Burgos is an 54 y.o. female. Chief Complaint Patient presents with ??? Joint Pain shoulders, hips ??? Telemedicine Video Visit The concept of ???Telemedicine?? has been described to the patient.? Patient has been informed of the anticipated benefits and possible risks.? Patient understands the information provided regarding telemedicine, has had the opportunity to ask questions about this information, and all questions have been answered to patient???s satisfaction. Patient consents for the use of telemedicine in his/her medical care and authorizes the transmission of any relevant medical information to providers and theirstaff involved in patient???s medical or mental health care. TELEMEDICINE VIDEO VISIT Today's visit was provided through telemedicine video conferencing: The location of the patient : Home The location of the provider: Office The following staff and their role did participate in today's encounter visit: Scooter Cowan MD Assessment at last visit: History of + MASSIEL- Per outside provider and patient reports and for which she was placed on hydroxychloroquine for her arthralgias. Hydroxychloroquine has been helpful and is relatively safe so we will continue. She does get annual eye exams. Get updated serologies including screening for antiphospholipid syndrome which outside records indicate positive tests in the past? Patient gives no history of miscarriages or thrombotic events. Osteoarthritis- There is evidence for OA on exam and by history; most symptomatic at the great toes. Continue ibuprofen as needed. Continue Plaquenil which may also ease OA discomfort. Chronic fatigue- Increased symptoms in recent years may be related to her job at home. Get updated thyroid function study and screen for thyroiditis which can be associated with + MASSIEL. Since last visit: No new symptoms. Has mild aches in both shoulders, L >R . Low back gets stiff. R hip can ache. Walking is limited by hallux rigidus. Annual eye exam has been normal. Has episodic mild diarrhea. Denies any other joint pains or swelling. AM stiffness: None to up to 30 min if the weather is humid. Physical activity/ exercise- her daily activities keep her active. Takes stairs frequently at home. Has 2 grown kids in their 20s away from home as well as 2 teens at home. Used to do yoga- but stoppeddue to lack of time. 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 She babysits 1 yo, 3 yo granddaughters. Has help with housechores. Patient Active Problem List Diagnosis ??? Primary osteoarthritis involving multiple joints No past medical history on file. No past surgical history on file. Outpatient Medications Marked as Taking for the 05/25/20 encounter (Telemedicine) with Scooter Cowan Chi, MD Medication Sig [...] ORAL) Take 1,500 mg by mouth. ??? hydroxychloroquine (PLAQUENIL) 200 mg tablet Take 1 Tab by mouth 2 times daily. 180 Tab 3 ??? Qexny-4-PTY-EPA-Fish Oil (FISH OIL) 1,000 mg (120 mg-180 mg) capsule Take 1,200 Caps by mouth. No Known Allergies I reviewed the 10 point ROS performed by the MA or nurse which is as documented in Epic. Objective: Physical Exam Constitutional: General: She is not in acute distress. Comments: Cheerful, healthy-appearing middle-aged female. HENT: Head: No signs of injury. Nose: Nose normal. Eyes: Extraocular Movements: EOM normal. Conjunctiva/sclera: Conjunctivae normal. Pulmonary: Effort: No respiratory distress. Musculoskeletal: Comments: Mild bony enlargements bilateral PIPs, great toe MTPs. No peripheral joint swelling. Skin: Findings: No rash. Neurological: Mental Status: She is alert and oriented to person, place, and time. Psychiatric: Mood and Affect: Mood and affect normal. Behavior: Behavior normal. 05/22/2020 11:07 MASSIEL Interpretation Negative C4 Complement 20 Anti DNA (DS) <12.3 Rheumatoid Factor <8.6 Lab Results Component Value Date WBC 6.57 05/18/2019 HGB 12.5 05/18/2019 HCT 38.3 05/18/2019 PLT 332 05/18/2019 ALT 29 05/18/2019 AST 25 05/18/2019 NA 138 05/18/2019 K 4.4 05/18/2019 CL 103 05/18/2019 CREATININE 0.81 05/18/2019 BUN 17 05/18/2019 CO2 28 05/18/2019 TSH 1.36 05/18/2019 TG antibody negative TPO antibody 300 Cardiolipin antibodies negative Lupus anticoagulant negative UA negative 05/18/2019 11:26 MASSIEL Interpretation Negative C4 Complement 22 CCP Antibodies <2.5 Anti DNA (DS) 38.4 (H) Rheumatoid Factor 9 SSA Antibody 1.5 SSB Antibody 4.8 PROCEDURE TECH Antibody 1.9 Sm (Hoover) Antibody 2.1 Assessment: 1. Primary osteoarthritis involving multiple joints 2. Thyroiditis Plan: Osteoarthritis- Joint pains have been mild on [...] keep an eye on the TSH annually. Barriers to learning identified: No Patient verbalizes understanding and agrees with plan Yes Return in about 1 year (around 05/25/2021) for in person. (Portions of this document may have been prepared with speech recognition software or keyboard data communications engineer techniques. Minor irregularities or keyboarding misprints may be present.) Scooter Cowan MD documented in this encounter Plan of Treatment Upcoming Encounters Date Type Specialty Care Team Description 05/21/2022 Office Visit Rheumatology Scooter Cowan Chi, MD 111 [facility], [facility], [address] 5 [place], [place] [phone] (Wo rk) documented as of this encounter Visit Diagnoses Diagnosis Primary osteoarthritis involving multipl e joints - Primary Thyroiditis Thyroiditis, unspecified documented in this encounter Care Teams Quality Technician Fiberglass Relationship Specialty Start Date End Date Cortney Toussaint FNP PCP - General 01/20/19 [address] [place] [address] Ki Evans MD 03/12/18 [address] [place], [place] [address] documented as of this encounter
--- OUTSIDE RECORDS SUMMARY | 2022-05-16 01:30 | XMS_ITS | Encounter Summary ---
:1965 Author Organization [facility] Address [address] [place] [address] Care Team Providers Name Role Phone Cortney Toussaint FABIOLA Primary Care Provider Ki Evans MD Unavailable Reason for Visit Reason Onset Date Comments Labs Only 05/18/2020 Appointment Related 05/18/2020 Patient confirmed, stacey poole added email Encounter Details Date Type Department Care Team Description 05/18/2020 Telephone [facility] Scooter Cowan Chi, MD Labs Only; Rheumatology & [address] Appointment Related Immunology - [address] (Patient confirmed, [facility], [facility] telegraphic typewriter operator chief added email ) [address] [facility], [address] [place], [place] [address] [place] [phone] (Wo rk) Social History Tobacco Use Types [...] this encounter Miscellaneous Notes Telephone Encounter - Dee Woods RN - 05/18/2020 1551 EDT Lab orders sent to [place] in . LM notifying pt. elephone Encounter - Scooter Cowan Chi, MD - 05/18/2020 1449 EDT External lab orders signed. Please forward to [facility] in [place] [facility]. elephone Encounter - Shelley Solano - 05/18/2020 1216 EDT Patient would like to have lab orders sent to [facility] in [place] [facility]. This is for her appointment with Dr Cowan on 05/25. Also telegraphic typewriter operator chief added her email and she is fine with [employer] appt. documented in this encounter Plan of Treatment Upcoming Encounters Date Type Specialty Care Team Description 05/21/2022 Office Visit Rheumatology Scooter Cowan Chi, MD 111 [facility], [facility], [address] [place], [place] [phone] (Wo rk) documented as of this encounter Visit Diagnoses Diagnosis Positive MASSIEL (antinuclear antibody) - Pr imary Other and unspecified nonspecific immuno logical findings Thyroiditis Thyroiditis, unspecified documented in this encounter Care Teams Visual Education Director Relationship Specialty Start Date End Date Cortney Toussaint FNP PCP - General 01/20/[address] [place] [address] Ki Evans MD 03/12/18 [address] [place] [address] documented as of this encounter
--- OUTSIDE RECORDS SUMMARY | 2022-05-16 01:30 | XMS_ITS | Encounter Summary ---
:1965 Author Organization [facility] Address [address] [place] [address] Care Team Providers Name Role Phone FreedomCortney grande FABIOLA Primary Care Provider Ki Evans MD Unavailable Reason for Visit Reason Onset Date Comments Appointment Related 05/23/2020 Encounter Details Date Type Department Care Team Description 05/23/2020 Telephone [facility] Scooter Cowan Chi, MD Appointment Related Rheumatology & [address] [place] [address] venue Immunology - [facility], [facility], [address] 5 [address] [place] [phone] (Wo rk) Social History Tobacco Use Types [...] this encounter Miscellaneous Notes Telephone Encounter - Danelle Orlando - 05/23/2020 0838 EDT Patient called to request link for Zoom appt scheduled 05/25 @ 2 PM. Patients e- mail is [email or web address]. documented in this encounter Plan of Treatment Upcoming Encounters Date Type Specialty Care Team Description 05/21/2022 Office Visit Rheumatology Scooter Cowan Chi, MD 111 [facility], [facility], [address] [place], [place] [phone] (Wo rk) documented as of this encounter Visit Diagnoses Not on filedocumented in this encounter Care Teams Grocery Store Manager Relationship Specialty Start Date End Date Cortney Toussaint FNP PCP - General 01/20/19 [address] [place] [address] Ki Evans MD 03/12/18 [address] [place], [place] [address] documented as of this encounter
--- OUTSIDE RECORDS SUMMARY | 2022-05-16 01:30 | XMS_ITS | Encounter Summary ---
:1965 Author Organization [facility] Address [address] [place] [address] Care Team Providers Name Role Phone Freedomuk Cortney FABIOLA Primary Care Provider Ki Evans MD Unavailable Encounter Details Date Type Department Care Team Description 05/25/2020 Travel Social History Tobacco Use Types Packs/Day Years [...] Visit Rheumatology Scooter Cowan Chi, MD 111 [facility], [facility], [address] 5 [place], [place] [phone] (Wo rk) documented as of this encounter Visit Diagnoses Not on filedocumented in this encounter Care Teams Band Master Relationship Specialty Start Date End Date Cortney Toussaint FNP PCP - General 01/20/19 [address] [facility], [place] [address] Ki Evans MD 03/12/18 [address] [place], [place] [address] documented as of this encounter
--- OUTSIDE RECORDS SUMMARY | 2022-05-16 01:30 | XMS_ITS | Encounter Summary ---
:1965 Author Organization [facility] Address [address] [place] [address] Care Team Providers Name Role Phone Freedomuk Cortney FABIOLA Primary Care Provider Ki Evans MD Unavailable Reason for Visit Reason Onset Date Comments Medications Refill 08/20/2021 Encounter Details Date Type Department Care Team Description 08/20/2021 Refill [facility] Scooter Cowan Chi, MD Medications Refill Rheumatology & Immunology [address], [address] [place], [place] [address] [place] [address] [phone] (Wo rk) Social History Tobacco Use [...] encounter Miscellaneous Notes Telephone Encounter - Jonathan Eagle RN - 08/20/2021 0956 EST -Medication refill addressed in another encounter elephone Encounter - Jonathan Eagle RN - 08/20/2021 0956 EST From: Eloise Burgos To: Office of Scooter Cowan MD Sent: 08/20/2021 8:47 EST Subject: Medication Renewal Request Refills have been requested for the following medications: hydrOXYchloroQUINE (PLAQUENIL) 200 mg tablet [Scooter Cowan MD] Preferred pharmacy: [phone] documented in this encounter Plan of Treatment Upcoming Encounters Date Type Specialty Care Team Description 05/21/2022 Office Visit Rheumatology Scooter Cowan Chi, MD 111 [facility], [facility], [address] [place], [place] [phone] (Wo rk) documented as of this encounter Visit Diagnoses Not on filedocumented in this encounter Care Teams Chart Reader Relationship Specialty Start Date End Date Cortney Toussaint FNP PCP - General 01/20/19 [address] [place] [address] Ki Evans MD 03/12/18 [address] [place], [place] [phone] documented as of this encounter
--- OUTSIDE RECORDS SUMMARY | 2022-05-16 01:30 | XMS_ITS | Encounter Summary ---
:1965 Author Organization [facility] Address [address] [place] [address] Care Team Providers Name Role Phone Cortney Toussaint Primary Care Provider Ki Evans MD Unavailable Encounter Details Date Type Department Care Team Description 05/29/2021 Lab Requisition [facility] Outr Resulting Lab, Pathology & Laboratory Provider General acute hospital [address] [place] [phone] Social History Tobacco Use Types Packs/Day Years [...] Visit Rheumatology Scooter Cowan Chi, MD 111 [facility], [facility], [address] [place], [place] [phone] (Wo rk) documented as of this encounter Procedures Procedure Name Priority Date/Time Associated Diagnosis Comme nts T3 FREE Routine 05/28/2021 11:30 EDT Results for this procedure are i n the results section . documented in this encounter Results T3 FREE (05/28/2021 11:30 EDT) Pathologist Sig nature T3, Free 3.1 2.8 - 5.3 pg/mL [facility] Specimen Blood - Venous blood (substance) Performing Organization Address City/State/ZIP Code Phon e Number [facility] [address] [place] [address] SERVICES documented in this encounter Visit Diagnoses Not on filedocumented in this encounter Care Teams Sales Applications Engineer Relationship Specialty Start Date End Date Cortney Toussaint FNP PCP - General 01/20/19 [address] [place] [address] Ki Evans MD 03/12/18 [address] [place], [place] [address] documented as of this encounter
--- OUTSIDE RECORDS SUMMARY | 2022-05-16 01:30 | XMS_ITS | Encounter Summary ---
:1965 Author Organization [facility] Address [address] [place] [address] Care Team Providers Name Role Phone Cortney Toussaint Primary Care Provider Ki Evans MD Unavailable Encounter Details Date Type Department Care Team Description 05/15/2021 Lab Requisition [facility] Outr Resulting Lab, Pathology & Laboratory Provider [facility] [address] [address] Social History Tobacco Use Types Packs/Day Years [...] Visit Rheumatology Scooter Cowan Chi, MD 111 [facility], [facility], [address] [place], [place] [phone] (Wo rk) documented as of this encounter Procedures Procedure Name Priority Date/Time Associated Comments Diagnosis ANTI DNA (DOUBLE Routine 05/15/2021 9:28 EDT Resu lts for this STRANDED) procedure are i n the results section. RHEUMATOID FACTOR Routine 05/15/2021 9:28 EDT Res ults for this procedure are i n the results section. ANTI NUCLEAR AB Routine 05/15/2021 9:28 EDT Resul ts for this (MASSIEL), IFA procedure are i n the results section. THYROID ANTIBODIES Routine 05/15/2021 9:28 EDT Re sults for this procedure are i n the results section. documented in this encounter Results (ABNORMAL) THYROID ANTIBODIES (05/15/2021 9:28 EDT) Pathologist Sig nature Anti-Thyroglobulin <15 <=60 U/mL [facility] Thyroperoxidase Ab 74 (H) <=60 U/mL [facility] Specimen Blood - Venous blood (substance) Performing Organization Address [facility]/ZIP Code Phon e Number [facility] [address] [place] [address] SERVICES RHEUMATOID FACTOR (05/15/2021 9:28 EDT) Pathologist Sig nature Rheumatoid Factor <8.6 <12.0 IU/mL [facility] Specimen Blood - Venous blood (substance) Performing Organization Address [facility]/ZIP Code Phon e Number [facility] [address] [place] [address] SERVICES ANTI DNA (DOUBLE STRANDED) (05/15/2021 9:28 EDT) Anti-DNA (Double <12.3 <30.0 IU/mL [facility] Stranded) Comment: LABORATORY ? SERV ICES ? Negative: ??<30.0 IU/mL ? Borderline Positive: ??30.0 - 75.0 IU/mL ? Positive: ??>75.0 IU/mL Results were obtained with ivy mckinney [employer] QUANTA Lite dsDNA SC GABRIELA assay on the [employer] DSX. Specimen Blood - Venous blood (substance) Performing Organization Address City/State/ZIP Code Phon e Number [facility] [address] [place] [address] SERVICES (ABNORMAL) ANTI NUCLEAR AB (MASSIEL), IFA (05/15/2021 9:28 EDT) MASSIEL Interpretation Positive (A) Negative [facility] MASSIEL Titer and Pattern 1:[address] [facility] [address] LABORATORY SERVICES Specimen Blood - Venous blood (substance) Narrative [facility] - 05/17/2021 14:02 EDT Results were obtained with the [employer] NOV A Lite HEp-2 MASSIEL Kit by indirect immunofluorescence. Performing Organization Address City/[facility]/ZIP Code Phon e Number [facility] [address] [place] [address] SERVICES documented in this encounter Visit Diagnoses Not on filedocumented in this encounter Care Teams Nursing Assistants Teacher Relationship Specialty Start Date End Date Cortney Toussaint FNP PCP - General 01/20/19 [address] [place], [place] [address] Ki Evans MD 03/12/18 [address] [place] [address] documented as of this encounter
--- OUTSIDE RECORDS SUMMARY | 2022-05-16 01:31 | XMS_ITS | Encounter Summary ---
:1965 Author Organization [facility] Address [address] [place] [address] Care Team Providers Name Role Phone Ki Evans MD Primary Care Provider Encounter Details Date Type Department Care Team Description 12/27/2001 Results Only [facility] [place] Sanches MD conversion [address] [facility] 1 [address] [place] [phone] (Wo rk) Social History Tobacco Use Types Packs/Day Years Used Date Never Assessed Sex Assigned at Date Recorded Not on file documented as of this encounter Plan of Treatment Upcoming Encounters Date Type Specialty Care Team Description 05/21/2022 Office Visit Rheumatology Scooter Cowan Chi, MD 111 [facility], [facility], [address] [place], [place] [phone] (Wo rk) documented as of this encounter Procedures Procedure Name Priority Date/Time Associated Diagnosis Comme nts CYTOPATHOLOGY Routine 12/27/2001 0:00 EST Results for this procedure are i n the results section . documented in this encounter Results CYTOPATHOLOGY (12/27/2001 0:00 EST) Pathology Report: CYTOPATHOLOGY REPORT [facility] Reports generated via electronic interface contain brendon ginal data; however they are lacking the format of the original re port. Caution should be taken when reading/interpreting unfo rmatted reports. Name: ? MORRIS, ELOISE ? Accession #: ? [id number] : ? 1965 (Age: 36) ??F ?Collect Date: ? 12/10 Location: ? [facility] ? Receive Date : ? 12/30/2001 Provider: ?ALEXANDRIA BLACKMON MD Copy to: ? Specimen/Source: ?Conventional Pap Test, Cer vix/Endocervix Last Menstrual Period: ? 4/? Menstrual/ Status: ? Post ? SPECIMEN ADEQUACY ? Satisfactory for Evaluation - transformation zone component present GENERAL CATEGORIZATION ? Negative for Intraepithelial Lesion or Malignan cy ? Document reviewed and electronically signed by: ? DACIA Valera(ASCP)(IAC) ? Report Date: ??01/03/2002 13:46 End of Report Specimen Performing Organization Address City/State/ZIP Code Phon e Number [facility] [address] [place] [address] SERVICES [facility] [address] [place] [address] documented in this encounter Visit Diagnoses Not on filedocumented in this encounter Care Teams Setter Induction Heating Equipment Relationship Specialty Start Date End Date Ki Evans MD PCP - General 02/06/09 03/11/18 [address] [place] [address] documented as of this encounter
--- OUTSIDE RECORDS SUMMARY | 2022-05-16 01:31 | XMS_ITS | Encounter Summary ---
:1965 Author Organization [facility] Address [address] [place] [address] Care Team Providers Name Role Phone Cortney Toussaint Primary Care Provider Ki Evans MD Unavailable Reason for Visit Reason Comments Fatigue Muscle Pain left shoulder pain bothers t pastora to time New Patient Visit Patient is being seen at the request of Cortney Toussaint to establish with a new tube worker [facility] history of + MASSIEL. Referral (Routine) - Authorization Not Required Specialty Diagnoses / Procedures Referred By Contact Refer red To Contact Rheumatology Diagnoses Antiphospholipid syndrome ([facility]) Unspecified osteoarthritis, unspecified site Cortney Toussaint FNP Ep5 Rheumatology [address] [place], [place] [address] [place] [phone] Fax: Referral ID Status Reason Start Expiration Visits Visits Date Date Requested Authorized [id number] Authorization Not 1 1 Required Encounter Details Date Type Department Care Team Description 05/18/2019 Office Visit [facility] Scooter Cowan Chi, MD Positive MASSIEL (antinuclear antibody) (Carolee mcelroy Dx); Rheumatology & [address] [facility] eoarthritis involving multiple joints; Immunology - [facility] Chronic fatigue syndrome [facility], [address], [address] [place] [address] [place] [phone] Social History Tobacco Use Types Packs/Day [...] Sign Reading Time Taken Comments Blood Pressure 120/70 05/18/2019 1008 EDT Pulse 52 05/18/2019 1008 EDT Temperature - - Respiratory Rate - - Oxygen Saturation - - Inhaled Oxygen Concentration - - Weight 70.8 kg (156 lb) 05/18/2019 1008 EDT Height 162 cm (5' 3.78) 05/18/2019 1008 EDT Body Mass Index 26.96 05/18/2019 1008 EDT documented in this encounter Functional Status [...] encounter Patient Instructions Patient InstructionsScooter Cowan Chi, MD, MD - 05/18/2019 10:20 EDT Continue current meds. documented in this encounter Progress Notes Scooter Cowan Chi, MD, MD - 05/18/2019 1020 EDT Images from the original note were not included. Subjective: Patient ID: Eloise Burgos is an 53 y.o. female. Chief Complaint Patient presents with ??? Fatigue ??? Muscle Pain left shoulder pain bothers time to time ??? New Patient Visit Patient is being seen at the request of Cortney Toussaint to establish with a new tube worker with history of + MASSIEL. Outside notes indicate referral for history of antiphospholipid syndrome and osteoarthritis. She takes hydroxychloroquine which was prescribed by a tube worker in 2016 for +MASSIEL and arthralgias. MASSIEL was done at [facility]. Her tube worker has since retired and she is here to establish with a different practice. The hydroxychloroquine has helped her joint pains. Joints that bother the pt currently: Neck: no Low back: some aching Shoulders: Left aches with pressure Elbows: no Wrists: Sharp pains with use; wears splints occasionally Fingers: Mild stiffness Hips: Lateral pains due to bursitis for several years. Knees: Had a flare of R medial pain where she could not walk 6 months ago- improved with PT Ankles: no Feet/ toes: hallux rigidus at mtp 1; wears carbon shanks which help Joints swelling- Mild at R knee AM stiffness- 10 min Pain at night- Lateral hips; tosses and turns at night. Therapies tried and failed- Therapies that helped- Hydroxychloroquine; ibuprofen Physical activity/ exercise-currently doing physical therapy for her right knee; her daily activities keep her active. Takes stairs frequently at home. Has 2 grown kids in their 20s away from home as well as 2 teens at home. Used to do yoga- but stopped due to lack of time. 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 Primary osteoarthritis involving multiple joints History reviewed. No pertinent past medical history. History reviewed. No pertinent surgical history. Family History Problem Relation Age of Onset ??? Arthritis-Osteo Mother ??? Psoriasis Paternal Grandmother Social Social History Tobacco Use ??? Smoking status: Never Smoker ??? Smokeless tobacco: Never Used Substance Use Topics ??? Alcohol use: Yes Comment: 1 wine or liquor with dinner ??? Drug use: No Outpatient Medications Marked as Taking for the 05/18/19 encounter (Office Visit) with Scooter Cowan Chi, [...] ??? hydroxychloroquine (PLAQUENIL) 200 mg tablet Take 200 mg by mouth daily. ??? Ebnvx-8-XQL-EPA-Fish Oil (FISH OIL) 1,000 mg (120 mg-180 mg) capsule Take 1,200 Caps by mouth. No Known Allergies Review of Systems Constitutional: Positive for malaise/fatigue. Negative for chills, diaphoresis, fever and weight loss. HENT: No oral ulcers No dry mouth Eyes: Positive for double vision (several weeks ago x sev hrs). Negative for pain. No dry eyes Respiratory: Negative for cough, shortness of breath and wheezing. Cardiovascular: Negative for chest pain and palpitations. No raynauds Gastrointestinal: Negative for abdominal pain, blood in stool, constipation, diarrhea, heartburn andnausea. Hiatal hernia Genitourinary: Negative for dysuria, frequency and hematuria. Has iud; still menstruating; no history of miscarriages. Musculoskeletal: Positive for joint pain, myalgias and neck pain. Negative for back pain. Skin: Positive for rash (Episodic itchy rash on eyelids- responds to hydrocortisone). Negative for itching. No sun sensitive rashes no psoriasis Neurological: Positive for dizziness (past sev weeks), tingling (fingers) and focal weakness. Negative for seizures and headaches. Endo/Heme/Allergies: Does not bruise/bleed easily. No history of thrombotic events. Psychiatric/Behavioral: Negative for depression. The patient has insomnia (takes Tylenol pm). The patient is not nervous/anxious. All other systems reviewed and are negative. - See HPI Objective: BP 120/70 Pulse 52 Ht 162 cm (63.78) Wt 70.8 kg (156 lb) BMI 26.96 kg/m?? Physical Exam Constitutional: She is oriented to person, place, and time. No distress. Cheerful, healthy-appearing middle-aged female. HENT: Nose: Nose normal. Mouth/Throat: Mucous membranes are moist. Oropharynx is clear. Eyes: Conjunctivae and EOM are normal. Pupils are equal, round, and reactive to light. Neck: No thyromegaly present. Cardiovascular: Normal rate, regular rhythm and normal heart sounds. No murmur heard. Pulmonary/Chest: Effort normal. No respiratory distress. Abdominal: Soft. There is no hepatosplenomegaly. There is no tenderness. Musculoskeletal: a complete musculoskeletal exam of the upper and lower extremities was performed and was normal except for findings shown on the homonculus: Neurological: She is alert and oriented to person, place, and time. No cranial nerve deficit. Skin: Skin is warm. No rash noted. Psychiatric: She has a normal mood and affect. Her behavior is normal. Vitals reviewed. Outside labs: 05/07/2018: PTT 33.4 (0-51.9) DRVVT 42.3 (0-47) CBC, CMP - normal CRP <8 ESR 7 02/26/2018: BMP normal Assessment: 1. Positive MASSIEL (antinuclear antibody) COMPLETE BLOOD COUNT AND DIFFERENTIAL COMPREHENSIVE METABOLIC PANEL (CMP) CCP ANTIBODIES C4 COMPLEMENT ARTHRITIS 1 SM (HOOVER) ANTIBODY ANTI DNA (DOUBLE STRAND) CAPACITY PLANNING MANAGER ANTIBODIES BY GABRIELA SSA ANTIBODIES BY GABRIELA SSB ANTIBODIES BY GABRIELA LUPUS ANTICOAGULANT CASCADE CARDIOLIPIN ANTIBODY THYROID ANTIBODIES UA, CHEMICAL AND SEDIMENT ANALYSIS (DIPSTICK AND MICROSCOPIC) 2. Primary osteoarthritis involving multiple joints 3. Chronic fatigue syndrome THYROID ANTIBODIES TSH Plan: History of + MASSIEL- Per outside provider [...] which can be associated with + MASSIEL. Barriers to learning identified: No Patient verbalizes understanding and agrees with plan Yes Return in about 1 year (around 05/18/2020). Copy of this note will be sent to PCP: Cortney Toussaint (Portions of this document may have been prepared with speech recognition software or keyboard database administration associate techniques. Minor irregularities or keyboarding misprints may be present.) Scooter Cowan MD documented in this encounter Plan of Treatment Upcoming Encounters Date Type Specialty Care Team Description 05/21/2022 Office Visit Rheumatology Scooter Cowan Chi, MD [address] [facility], [facility], [address] [place], [place] [address] (Wo rk) documented as of this encounter Results TSH (05/18/2019 11:26 EDT) TSH 1.36 0.47 - 4.68 [facility] Comment: uIU/ml LABORATORY SERVICES The results of this assay can be falsely lowered due to the consumption of Biotin. Specimen Blood specimen (specimen) - Blood Performing Organization Address City/State/ZIP Code Phon e Number [facility] LABORATORY [address] [place] [address] SERVICES (ABNORMAL) UA, CHEMICAL AND SEDIMENT ANALYSIS (DIPSTICK AND MICROSCOPIC) (05/18/2019 11:26 EDT) Color, UA Yellow [facility] LABORATORY SERVICES Clarity, UA Clear [facility] LABORATORY SERVICES Glucose, UA Neg Neg [facility] LABORATORY SERVICES Bilirubin, [facility] Neg [facility] LABORATORY SERVICES Ketones, [facility] LABORATORY SERVICES Refractometer 1.012 1.001 - 1.035 [facility] SG,Urine [facility]ENTER [facility] SERVICES Blood, UA Neg Neg [facility] LABORATORY SERVICES pH, UA 6.5 4.6 - 8.0 [facility] LABORATORY SERVICES Protein, UA Neg Neg [facility] LABORATORY SERVICES Urobilinogen, UA Normal Normal [facility] E.U./dl [facility]ENTER LAB[facility]ATORY SERVICES Nitrite, UA Neg Neg [facility] LABORATORY SERVICES Leuk Esterase Neg Neg [facility] LABORATORY SERVICES UA Method Used [facility] Comment: CENTER LABORATORY Testing performed using SERVICES [employer]. Urine RBC Count 0 to 2 0 to 2 /HPF [facility] Automated [facility]ENTER LAB[facility]ATORY SERVICES Urine WBC Count 0 to 3 0 to 3 /HPF [facility] Automated [place] [facility] SERVICES Urine Squamous Few (A) None seen [facility] Epithelial Cell /LPF [facility] Count, Automated SERVICES Urine Hyaline Casts, < or = 10 < or = 10 [facility] Automated /LPF [facility] SERVICES Urine Bacteria None seen None seen [facility] Count, Automated [facility] SERVICES UA Comment Sediment results [facility] Comment: CENTER LABORATORY are unreliable on SERVICES urines unrefrig >2hrs or refrig >8hrs. Specimen Urine (substance) - Urine Performing Organization Address [facility] Phon e Number [facility] LABORATORY [address] [place] [address] SERVICES (ABNORMAL) THYROID ANTIBODIES (05/18/2019 11:26 EDT) Pathologist Sig nature Thyroglobulin Ab <15 <61 U/mL [facility] LABORATORY SERVICES Thyroperoxidase Ab 300 (H) <61 U/mL [facility] LABORATORY SERVICES Specimen Blood specimen (specimen) - Blood Performing Organization Address [facility] Phon e Number [facility] LABORATORY [address] [place] [address] SERVICES CARDIOLIPIN ANTIBODY (05/18/2019 11:26 EDT) Cardiolipin IgG 1.32 GPL [facility] Comment: LABORATORY SERVICES IgG Negative <15 GPL Indeterminate 15 - <20 GPL Low to Medium Positive 20 - 80 GPL Strongly Positive >80 GPL Results were obtained with the [employer] QUANTA Lite NATALYA I gG and IgM III GABRIELA kits. Cardiolipin IgG and IgM values obtained with different button inspector's assay methods may not be used interchangeably. The magnitude of the reported IgG and IgM levels canno t be correlated to an endpoint titer. Cardiolipin IgM 2.30 MPL [facility] Comment: LABORATORY SERVICES IgM Negative <12.5 MPL Indeterminate 12.5 - <20 MPL Low to Medium Positive 20 - 80 MPL Strongly Positive >80 MPL Results were obtained with the [employer] QUANTA Lite NATALYA I gG and IgM III GABRIELA kits. Cardiolipin IgG and IgM values obtained with different button inspector's assay methods may not be used interchangeably. The magnitude of the reported IgG and IgM levels canno t be correlated to an endpoint titer. Specimen Blood specimen (specimen) - Blood Performing Organization Address [facility] Phon e Number [facility] LABORATORY [address] [place] [address] SERVICES LUPUS ANTICOAGULANT CASCADE (05/18/2019 11:26 EDT) LA Bollinger Negative for detection of lupus anticoagulant (LA). [facility] Summary Comment: CENTER LABORATORY Where clinical suspicion for antiphospholipid sy ndrome is high, it may be SERVICES appropriate to perform alternative LA or aPL assays. The laboratory criteria for Antiphospholipid Syndrome (aPL) include positive testing for one of the following on 2 or more occasion s, atleast 12 weeks apart: 1. Lupus anticoagulant (LA), 2. Cardiolipin antibodies (IgG or IgM) in medium or hi gh titer, 3. Beta 2 glycoprotein 1 antibodies (IgG of IgM). Solid-phase assays for Beta2 glycoprotei n 1 (B2GP1) and Cardiolipin antibodies are recommended when evaluating a patient for antipho spholipid syndrome. ?? Correlation with those results is advised. Reviewed by Dr. Georgia Rider 05/19/19 1516 Dilute Viper 33.3 secs [facility] Venom Comment: [place] [facility] Reference Range = 27.2-36.9 secs SERVICE S Results must be interpreted with caution if the patien t is on oral anticoagulant, direct thrombin inhibitors or heparin. Silica Clotting 37.4 sec [facility] Time Comment: [place] [facility] Reference Range = 30.2-48.4 secs SERVICES Results must be interpreted with caution if the patien t is on oral anticoagulant, direct thrombin inhibitors or heparin. Specimen Blood specimen (specimen) - Blood Performing Organization Address [facility] e Number [facility] LABORATORY [address] [place] [address] SERVICES SSB ANTIBODIES BY GABRIELA (05/18/2019 11:26 EDT) [facility] Sig nature SSB Antibody 4.8 <20 Units [facility] Comment: LABORATORY SERVICES Negative: <20 Units Weak Positive: 20 - 39 Units Moderate Positive: 40 - 80 Units Strong Positive: >80 Units Results were obtained with the [employer] QUANTA SS-B GABRIELA . SS-B values obtained with different manufacturers' assay methods may not be used interchangeably. The magnitude of the reported IgG levels cannot be cor related to an endpoint titer. Specimen Blood specimen (specimen) - Blood Performing Organization Address [facility] Phon e Number [facility] LABORATORY [address] [place] [address] SERVICES SSA ANTIBODIES BY GABRIELA (05/18/2019 11:26 EDT) Pathologist Sig nature SSA Antibody 1.5 <20 Units [facility] Comment: LABORATORY SERVICES Negative: <20 Units Weak Positive: 20 - 39 Units Moderate Positive: 40 - 80 Units Strong Positive: >80 Units Results were obtained with the [employer] QUANTA Lite SS-A GABRIELA. SS-A values obtained with different manufacturers' assay methods m ay not be used interchangeably. The magnitude of the re ported IgG levels cannot be correlated to an endpoint titer. Specimen Blood specimen (specimen) - Blood Performing Organization Address [facility] LABORATORY [address] [place] [address] SERVICES CAPACITY PLANNING MANAGER ANTIBODIES BY GABRIELA (05/18/2019 11:26 EDT) Pathologist Sig nature CAPACITY PLANNING MANAGER Antibody 1.9 <20 Units [facility] Comment: LABORATORY SERVICES Negative: <20 Units Weak Positive: 20 - 39 Units Moderate Positive: 40 - 80 Units Strong Positive: >80 Units Results were obtained with the [employer] QUANTA Lite CAPACITY PLANNING MANAGER E FELIBERTO. CAPACITY PLANNING MANAGER Values obtained with different manufacturers' assay methods m ay not be used interchangeably. The magnitude of the re ported IgG levels cannot be correlated to an endpoint titer. A positive result in the QUANTA Lite CAPACITY PLANNING MANAGER GABRIELA indicat es the presence of antibodies reactive with the CAPACITY PLANNING MANAGER/Sm complex but cannot distinguish between anti-Sm and anti-CAPACITY PLANNING MANAGER activity. Specimen Blood specimen (specimen) - Blood Performing Organization Address [facility] LABORATORY [address] [place] [address] SERVICES (ABNORMAL) ANTI DNA (DOUBLE STRAND) (05/18/2019 11:26 EDT) Anti DNA (DS) 38.4 (H) <30 IU/mL [facility] Comment: LABORATORY SERVICES Results were obtained with the [employer] QUANTA Lite dsDNA SC GABRIELA assay. Interpretation: ??Borderline Positve (30-75 IU/mL) It is recommended that borderline positi ve samples be recollected and retested for confirmation. ??It is important to test patients on a regular basis to monitor changes in the level of dsDNA autoantibodies. Specimen Blood specimen (specimen) - Blood Performing Organization Address [facility] LABORATORY [address] [place] [address] SERVICES SM (HOOVER) ANTIBODY (05/18/2019 11:26 EDT) Sm (Hoover) 2.1 <20 Units [facility] Antibody Comment: LABORATORY SERVICES Negative: <20 Units Weak Positive: 20 - 39 Units Moderate Positive: 40 - 80 Units Strong Positive: >80 Units Results were obtained with the [employer] QUANTA Lite Sm GABRIELA. Sm values obtained with different manufacturers' assay methods may not be used interchangeably. The magnitude of the reported IgG levels cannot be cor related to an endpoint titer. Specimen Blood specimen (specimen) - Blood Performing Organization Address [facility] e [facility] LABORATORY [address] [place] [address] SERVICES ARTHRITIS 1 (05/18/2019 11:26 EDT) Pathologist [facility] Rheumatoid Factor 9 <12.5 IU/mL [facility] LABORATORY SERVICES MASSIEL Interpretation Negative Negative [facility] Comment: LABORATORY No titer performed, MASSIEL screen is negative. SERVICES Results were obtained with the [employer] NOVA Lite HEp-2 A NA kit by indirect immunofluorescence. Specimen Blood specimen (specimen) - Blood Performing Organization Address [facility] e [facility] LABORATORY [address] [place] [address] SERVICES C4 COMPLEMENT (05/18/2019 11:26 EDT) Pathologist Sig nature C4 Complement 22 13 - 39 mg/dL [facility] SERVICES Specimen Blood specimen (specimen) - Blood Performing Organization Address [facility] e [facility] LABORATORY [address] [place] [address] SERVICES CCP ANTIBODIES (05/18/2019 11:26 EDT) Pathologist Sig nature CCP Antibodies <2.5 <5.0 U/mL [facility] SERVICES Specimen Blood Performing Organization Address [facility] Phon e Number [facility] LABORATORY [address] [place] [address] SERVICES COMPREHENSIVE METABOLIC PANEL (CMP) (05/18/2019 11:26 EDT) Potassium 4.4 3.5 - 5.0 [facility] mEq/L [place] [facility] SERVICES Sodium 138 136 - 145 [facility] mEq/L [place] [facility] SERVICES Chloride 103 96 - 110 [facility] mEq/L [facility] SERVICES CO2 28 22 - 32 mEq/L [facility] LABORATORY SERVICES Total Alkaline 63 38 - 126 U/L [facility] Phosphatase [place] [facility] SERVICES Bilirubin, Total 0.5 <1.4 mg/dl [facility] LABORATORY SERVICES AST 25 15 - 46 U/L [facility] LABORATORY SERVICES ALT 29 <53 U/L [facility] LABORATORY SERVICES Albumin 4.3 3.4 - 4.9 [facility] g/dl [place] [facility] SERVICES Total Protein 6.8 6.3 - 8.2 [facility] g/dl [place] [facility] SERVICES Creatinine 0.81 0.52 - 1.04 [facility] mg/dl [place] [facility] SERVICES GFR, Calculated 84 >60 [facility] Comment: ml/min/1.73m2 [facility] eGFR calculated using CKD-EPI equation for SERVICES non Americans. Multiply eGFR by 1.16 for Americans. BUN 17 10 - 26 mg/dl [facility] LABORATORY SERVICES Calcium 9.7 8.5 - 10.5 [facility] mg/dl [place] [facility] SERVICES Calculated Calcium 9.5 8.5 - 10.5 [facility] mg/dl [place] [facility] SERVICES Glucose, Serum 93 70 - 100 [facility] mg/dl [place] [facility] SERVICES Fasting? YES [facility] LABORATORY SERVICES Specimen Blood specimen (specimen) - Blood Performing Organization Address City/State/[facility] Code Phon e Number [facility] LABORATORY [address] [place] [address] SERVICES COMPLETE BLOOD COUNT AND DIFFERENTIAL (05/18/2019 11:26 EDT) Pathologist Sig nature WBC 6.57 4.0 - 12.4 [facility] LABORATORY SERVICES RBC 4.23 3.86 - 5.04 [facility] LABORATORY SERVICES Hemoglobin 12.5 11.6 - 15.2 [facility] gm/dl LABORATORY SERVICES HCT 38.3 34.9 - 44.4 % [facility] LABORATORY SERVICES MCV 91 81 - 98 fl [facility] LABORATORY SERVICES MCH 29.6 26.7 - 33.3 pg [facility] LABORATORY SERVICES MCHC 32.6 32.1 - 35.9 [facility] gm/dl LABORATORY SERVICES RDW-CV 13.2 <14.7 % [facility] LABORATORY SERVICES RDW-SD 43.8 <50.4 fl [facility] LABORATORY SERVICES PLT 332 141 - 377 /[facility] LABORATORY SERVICES MPV 10.3 9.5 - 12.7 fl [facility] LABORATORY SERVICES Neutrophils 70.2 % [facility] LABORATORY SERVICES Lymphocytes 22.7 % [facility] LABORATORY SERVICES Monocytes 5.0 % [facility] LABORATORY SERVICES Eosinophils 0.9 % [facility] LABORATORY SERVICES Basophils 0.6 % [facility] LABORATORY SERVICES Immature Grans 0.6 % [facility] LABORATORY SERVICES ABS Neutrophils 4.61 2.20 - 8.85 [facility] K/[facility] LABORATORY SERVICES ABS Lymphs 1.49 1.09 - 3.30 [facility] K/[facility] LABORATORY SERVICES ABS Monocytes 0.33 0.1 - 0.8 /[facility] LABORATORY SERVICES ABS Eosinophils 0.06 0.03 - 0.61 [facility] K/[facility] LABORATORY SERVICES ABS Basophils 0.04 0.01 - 0.11 [facility] LABORATORY SERVICES ABS Immature Grans 0.04 0 - 0.06 /[facility] LABORATORY SERVICES Type of Diff: Automated [facility] LABORATORY SERVICES Specimen Blood specimen (specimen) - Blood Performing Organization Address City/State/ZIP Code Phon e Number [facility]OR[facility]ORY [address] [place] [address] SERVICES documented in this encounter Visit Diagnoses Diagnosis Positive MASSIEL (antinuclear antibody) - Pr imary Other and unspecified nonspecific immuno logical findings Primary osteoarthritis involving multipl e joints Chronic fatigue syndrome documented in this encounter Historical Medications This list may reflect changes made after this encounter. Medication Sig Dispensed Refills Start Date End Date acetaminophen (TYLENOL) 500 Take 500 mg by 0 mg tablet mouth every 6 hours as needed for Pain. VAISHALI ASPIRIN ORAL Take 81 mg by 0 mouth. glucosamine HCl/chondroitin Take 1,500 mg by 0 lipscomb (GLUCOSAMINE-CHONDROITIN mouth. ORAL) ergocalciferol, vitamin D2, Take 1,000 Units 0 (VITAMIN D ORAL) by mouth. calcium carbonate 500 mg/5 mL Take 1,200 mg by 0 (1,250 mg/5 mL) suspension mouth daily. Ejyob-9-HZA-EPA-Fish Oil Take 1,200 Caps 0 (FISH OIL) 1,000 mg (120 by mouth. mg-180 mg) capsule hydroxychloroquine Take 200 mg by 0 (PLAQUENIL) 200 mg tablet mouth daily. added in this encounter Care Teams Cup Trimming Machine Operator Relationship Specialty Start Date End Date Cortney Toussaint FNP PCP - General 01/20/19 [address] [place] [address] Ki Evans MD 03/12/18 [address] [place] [address] documented as of this encounter
--- OUTSIDE RECORDS SUMMARY | 2022-05-16 01:31 | XMS_ITS | Encounter Summary ---
:1965 Author Organization [facility] Address [address] [place] [address] Care Team Providers Name Role Phone Allyssa Woodward MD Primary Care Provider Encounter Details Date Type Department Care Team Description 08/13/2004 Results Only [facility] - Allyssa Jeff MD conversion [address] [place], [place] [address] [place] [address] [phone] Social History Tobacco Use Types Packs/Day Years Used Date Never Assessed Sex Assigned at Date Recorded Not on file documented as of this encounter Plan of Treatment Upcoming Encounters Date Type Specialty Care Team Description 05/21/2022 Office Visit Rheumatology Scooter Cowan Chi, MD [address] [facility], [facility], [address] [place] [address] (Wo rk) documented as of this encounter Procedures Procedure Name Priority Date/Time Associated Diagnosis Comme nts CYTOPATHOLOGY Routine 08/13/2004 0:00 EST Results for this procedure are i n the results section . documented in this encounter Results CYTOPATHOLOGY (08/13/2004 0:00 EST) Pathology Report: CYTOPATHOLOGY REPORT [facility] Reports generated via electronic interface contain brendon ginal data; however they are lacking the format of the original re port. Caution should be taken when reading/interpreting unfo rmatted reports. Name: ? FAIZAN MORRISELA ? Accession #: ? [id number] : ? 1965 (Age: 38) ??F ?Collect Date: ? 11/2003 Location: ? [facility] ? Receive Date : ? 08/15/2004 Provider: ?ALLYSSA WOODWARD MD Copy to: ? Specimen/Source: ?ThinPrep Pap Test, Cervix Last Menstrual Period: ? 05/19/04 Menstrual/ Status: ? SPECIMEN ADEQUACY ? Satisfactory for Evaluation - transformation zone component present GENERAL CATEGORIZATION ? Negative for Intraepithelial Lesion or Malignan cy ? Document reviewed and electronically signed by: ? LESIA Doss(ASCP) ? Report Date: ??08/19/2004 14:26 End of Report Specimen Performing Organization Address City/State/ZIP Code Phon e Number [facility]ORATORY [address] [place] [address] SERVICES [facility] [address] [place] [address] documented in this encounter Visit Diagnoses Not on filedocumented in this encounter Care Teams Vulcanizing Press Operator Relationship Specialty Start Date End Date Allyssa Woodward MD PCP - General 02/06/09 03/11/18 [address] [place] [address] documented as of this encounter
--- OUTSIDE RECORDS SUMMARY | 2022-05-16 01:31 | XMS_ITS | Encounter Summary ---
:[address] [facility] Address [address] [place] [address] Care Team Providers Name Role Phone Norbert Cortney FABIOLA Primary Care Provider Ki Evans MD Unavailable Encounter Details Date Type Department Care Team Description 05/18/2019 Phlebotomy Only [facility] Paragliding InstructorRaheem MASSIEL (antinuclear antibody); - [facility] Outpatient Chronic fatigue syndrome [address] [place] [address] Social History Tobacco Use Types Packs/Day Years [...] Rheumatology Scooter Cowan Chi, MD [address] [facility], [facility] [address] [place], [address] [place], [place] [address] (Wo rk) documented as of this encounter Procedures Procedure Name Priority Date/Time Associated Comments Diagnosis LUPUS ANTICOAGULANT Routine 05/18/2019 11:26 Positive MASSIEL Resu lts for this CASCADE EDT (antinuclear procedure are i n antibody) the results section. SSB ANTIBODIES BY Routine 05/18/2019 11:26 Positive MASSIEL Result s for this GABRIELA EDT (antinuclear procedure are i n antibody) the results section. SSA ANTIBODIES BY Routine 05/18/2019 11:26 Positive MASSIEL Result s for this GABRIELA EDT (antinuclear procedure are i n antibody) the results section. SM ([place]) ANTIBODY Routine 05/18/2019 11:26 Positive MASSIEL Resu lts for this EDT (antinuclear procedure are i n antibody) the results section. CCP ANTIBODIES Routine 05/18/2019 11:26 Positive MASSIEL Results f or this EDT (antinuclear procedure are i n antibody) the results section. ARTHRITIS 1 Routine 05/18/2019 11:26 Positive MASSIEL Results for this EDT (antinuclear procedure are i n antibody) the results section. ARMED SECURITY OFFICER ANTIBODIES BY Routine 05/18/2019 11:26 Positive MASSIEL Result s for this GABRIELA EDT (antinuclear procedure are i n antibody) the results section. ANTI DNA (DOUBLE Routine 05/18/2019 11:26 Positive MASSIEL Results for this STRANDED) EDT (antinuclear procedure are i n antibody) the results section. PHOSPHOLIPID ANTIBODY Routine 05/18/2019 11:26 Positive MASSIEL Re sults for this EDT (antinuclear procedure are i n antibody) the results section. URINE CHEMICAL (DIP) & Routine 05/18/2019 11:26 Positive MASSIEL R esults for this SEDIMENT (MICRO) EDT (antinuclear procedure a re in WITHOUT REFLEX TO antibody) the result s CULTURE section. COMPLETE BLOOD COUNT Routine 05/18/2019 11:26 Positive MASSIEL Res ults for this AND DIFFERENTIAL EDT (antinuclear procedure a re in antibody) the results section. C4 COMPLEMENT Routine 05/18/2019 11:26 Positive MASSIEL Results fo r this EDT (antinuclear procedure are i n antibody) the results section. TSH Routine 05/18/2019 11:26 Chronic fatigue Results for this EDT syndrome procedure are i n the results section. THYROID ANTIBODIES Routine 05/18/2019 11:26 Positive MASSIEL Resul ts for this EDT (antinuclear procedure are i n antibody) the results Chronic fatigue section. syndrome COMPREHENSIVE Routine 05/18/2019 11:26 Positive MASSIEL Results fo r this METABOLIC PANEL (CMP) EDT (antinuclear proced ure are in antibody) the results section. documented in this encounter Results TSH (05/18/2019 11:26 EDT) TSH 1.36 0.47 - 4.68 [facility] [place] [facility] Comment: uIU/ml LABORATORY SERVICES The results of this assay can be falsely lowered due to the consumption of Biotin. Specimen Blood specimen (specimen) - Blood Performing Organization Address City/State/ZIP Code Phon e Number [facility] [place] [facility] LABORATORY [address] [place] [address] SERVICES (ABNORMAL) UA, CHEMICAL AND SEDIMENT ANALYSIS (DIPSTICK AND MICROSCOPIC) (05/18/2019 11:26 EDT) Color, UA Yellow [facility] [place] [facility] LABORATORY SERVICES Clarity, UA Clear [facility] [place] [facility] LABORATORY SERVICES Glucose, UA Neg Neg [facility] [place] [facility] LABORATORY SERVICES Bilirubin, Neg Neg [facility] [place] [facility] LABORATORY SERVICES Ketones, Neg [facility] LABORATORY SERVICES Refractometer 1.012 1.001 - 1.035 [facility] SG,Urine [facility] SERVICES Blood, [facility] Neg [facility] [place] [facility] LABORATORY SERVICES pH, UA 6.5 4.6 - 8.0 [facility] [place] [facility] LABORATORY SERVICES Protein, UA Neg Neg [facility] [place] [facility] LABORATORY SERVICES Urobilinogen, UA Normal Normal [facility] E.U./dl [facility] SERVICES Nitrite, UA Neg Neg [facility] [place] [facility] LABORATORY SERVICES Leuk Esterase Neg Neg [facility] [place] [facility] LABORATORY SERVICES UA Method Used [facility] Comment: CENTER LABORATORY Testing performed using SERVICES Lumavita Series. Urine RBC Count 0 to 2 0 to 2 /HPF [facility] LABORATORY SERVICES Urine WBC Count 0 to 3 0 to 3 /HPF [facility] LABORATORY SERVICES Urine Squamous Few (A) None seen [facility] Epithelial Cell /LPF [facility] LAB[facility]ORY Count, Automated SERVICES Urine Hyaline Casts, < or = 10 < or = 10 [facility] Automated /LPF [facility] SERVICES Urine Bacteria None seen None seen [facility] Count, Automated [facility] SERVICES UA Comment Sediment results [facility] Comment: CENTER LABORATORY are unreliable on SERVICES urines unrefrig >2hrs or refrig >8hrs. Specimen Urine (substance) - Urine Performing Organization Address [facility] Phon e Number [facility] [place] [facility] LABORATORY [address] [place] [address] SERVICES (ABNORMAL) THYROID ANTIBODIES (05/18/2019 11:26 EDT) Pathologist [facility] nature Thyroglobulin Ab <15 <61 U/mL [facility] [place] [facility] LABORATORY SERVICES Thyroperoxidase Ab 300 (H) <61 U/mL [facility] [facility] LABORATORY SERVICES Specimen Blood specimen (specimen) - Blood Performing Organization Address [facility] Phon e Number [facility] [facility] LABORATORY [address] [place] [address] SERVICES CARDIOLIPIN ANTIBODY (05/18/2019 11:26 EDT) Pathologist [facility] Cardiolipin IgG 1.32 GPL [facility] [place] [facility] Comment: LABORATORY SERVICES IgG Negative <15 GPL Indeterminate 15 - <20 GPL Low to Medium Positive 20 - 80 GPL Strongly Positive >80 GPL Results were obtained with the INOVA QUANTA Lite NATALYA I gG and IgM III GABRIELA kits. Cardiolipin IgG and IgM values obtained with different senior court office assistant's assay methods may not be used interchangeably. The magnitude of the reported IgG and IgM levels canno t be correlated to an endpoint titer. Cardiolipin IgM 2.30 MPL [facility] [place] [facility] Comment: LABORATORY SERVICES IgM Negative <12.5 MPL Indeterminate 12.5 - <20 MPL Low to Medium Positive 20 - 80 MPL Strongly Positive >80 MPL Results were obtained with the INOVA QUANTA Lite NATALYA I gG and IgM III GABRIELA kits. Cardiolipin IgG and IgM values obtained with different senior court office assistant's assay methods may not be used interchangeably. The magnitude of the reported IgG and IgM levels canno t be correlated to an endpoint titer. Specimen Blood specimen (specimen) - Blood Performing Organization Address [facility]/ZIP [facility] Phon e Number [facility] LABORATORY [address] [place] [address] SERVICES LUPUS ANTICOAGULANT CASCADE (05/18/2019 11:26 EDT) [place] Negative for detection of lupus anticoagulant ([place]). [...] secs [facility] [place] Comment: CENTER LABORATORY Reference Range = 27.2-36.9 secs SERVICE S Results must be interpreted with caution if the patien t is on oral anticoagulant, direct thrombin inhibitors or heparin. Silica Clotting 37.4 sec [facility] Time Comment: [facility] Reference Range = 30.2-48.4 secs SERVICES Results must be interpreted with caution if the patien t is on oral anticoagulant, direct thrombin inhibitors or heparin. Specimen Blood specimen (specimen) - Blood Performing Organization Address City/[facility] e Number [facility] LABORATORY [address] [place] [address] SERVICES SSB ANTIBODIES BY GABRIELA (05/18/2019 11:26 EDT) Pathologist Sig nature SSB Antibody 4.8 <20 Units [facility] Comment: LABORATORY SERVICES Negative: <20 Units Weak Positive: 20 - 39 Units Moderate Positive: 40 - 80 Units Strong Positive: >80 Units Results were obtained with the VBI VaccinesVA QUANTA SS-B GABRIELA . SS-B values obtained with different manufacturers' assay methods may not be used interchangeably. The magnitude of the reported IgG levels cannot be cor related to an endpoint titer. Specimen Blood specimen (specimen) - Blood Performing Organization Address [facility] e Number [facility] LABORATORY [address] [place] [address] SERVICES SSA ANTIBODIES BY GABRIELA (05/18/2019 11:26 EDT) Pathologist Sig nature SSA Antibody 1.5 <20 Units [facility] Comment: LABORATORY SERVICES Negative: <20 Units Weak Positive: 20 - 39 Units Moderate Positive: 40 - 80 Units Strong Positive: >80 Units Results were obtained with the INOVA QUANTA Lite SS-A GABRIELA. SS-A values obtained with different manufacturers' assay methods m ay not be used interchangeably. The magnitude of the re ported IgG levels cannot be correlated to an endpoint titer. Specimen Blood specimen (specimen) - Blood Performing Organization Address [facility] LABORATORY [address] [place] [address] SERVICES ARMED SECURITY OFFICER ANTIBODIES BY GABRIELA (05/18/2019 11:26 EDT) Pathologist Sig nature ARMED SECURITY OFFICER Antibody 1.9 <20 Units [facility] Comment: LABORATORY SERVICES Negative: <20 Units Weak Positive: 20 - 39 Units Moderate Positive: 40 - 80 Units Strong Positive: >80 Units Results were obtained with the VBI VaccinesVA QUANTA Lite ARMED SECURITY OFFICER E FELIBERTO. ARMED SECURITY OFFICER Values obtained with different manufacturers' assay methods m ay not be used interchangeably. The magnitude of the re ported IgG levels cannot be correlated to an endpoint titer. A positive result in the QUANTA Lite ARMED SECURITY OFFICER GABRIELA indicat es the presence of antibodies reactive with the ARMED SECURITY OFFICER/Sm complex but cannot distinguish between anti-Sm and anti-ARMED SECURITY OFFICER activity. Specimen Blood specimen (specimen) - Blood Performing Organization Address [facility] LABORATORY [address] [place] [address] SERVICES (ABNORMAL) ANTI DNA (DOUBLE STRAND) (05/18/2019 11:26 EDT) Anti DNA (DS) 38.4 (H) <30 IU/mL [facility] Comment: LABORATORY SERVICES Results were obtained with the VBI VaccinesVA QUANTA Lite dsDNA SC GABRIELA assay. Interpretation: ??Borderline Positve (30-75 IU/mL) It is recommended that borderline positi ve samples be recollected and retested for confirmation. ??It is important to test patients on a regular basis to monitor changes in the level of dsDNA autoantibodies. Specimen Blood specimen (specimen) - Blood Performing Organization Address [facility] LABORATORY [address] [place] [address] SERVICES SM ([place]) ANTIBODY (05/18/2019 11:26 EDT) Sm ([place]) 2.1 <20 Units [facility] Antibody Comment: LABORATORY SERVICES Negative: <20 Units Weak Positive: 20 - 39 Units Moderate Positive: 40 - 80 Units Strong Positive: >80 Units Results were obtained with the INOVA QUANTA Lite Sm GABRIELA. Sm values obtained with different manufacturers' assay methods may not be used interchangeably. The magnitude of the reported IgG levels cannot be cor related to an endpoint titer. Specimen Blood specimen (specimen) - Blood Performing Organization Address [facility]/ZIP Code Phon e Number [facility] LABORATORY [address] [place] [address] SERVICES ARTHRITIS 1 (05/18/2019 11:26 EDT) Rheumatoid Factor 9 <12.5 IU/mL [facility] LABORATORY SERVICES MASSIEL Interpretation Negative Negative [facility] Comment: LABORATORY No titer performed, MASSIEL screen is negative. SERVICES Results were obtained with the Vistronix NOVA Lite HEp-2 A NA kit by indirect immunofluorescence. Specimen Blood specimen (specimen) - Blood Performing Organization Address [facility] Phon e Number [facility] LABORATORY [address] [place] [address] SERVICES C4 COMPLEMENT (05/18/2019 11:26 EDT) Pathologist Sig nature C4 Complement 22 13 - 39 mg/dL [facility] SERVICES Specimen Blood specimen (specimen) - Blood Performing Organization Address City/[facility]/ZIP [facility] Phon e Number [facility] LABORATORY [address] [place] [address] SERVICES CCP ANTIBODIES (05/18/2019 11:26 EDT) Pathologist Sig nature CCP Antibodies <2.5 <5.0 U/mL [facility] SERVICES Specimen Blood Performing Organization Address [facility] Phon e Number [facility] LABORATORY [address] [place] [address] SERVICES COMPREHENSIVE METABOLIC PANEL (CMP) (05/18/2019 11:26 EDT) Potassium 4.4 3.5 - 5.0 [facility] mEq/L [facility] SERVICES Sodium 138 136 - 145 [facility] mEq/L [facility] SERVICES Chloride 103 96 - 110 [facility] mEq/L [facility] SERVICES CO2 28 22 - 32 mEq/L [facility] LABORATORY SERVICES Total Alkaline 63 38 - 126 U/L [facility] Phosphatase [facility] SERVICES Bilirubin, Total 0.5 <1.4 mg/dl [facility] LABORATORY SERVICES AST 25 15 - 46 U/L [facility] LABORATORY SERVICES ALT 29 <53 U/L [facility] LABORATORY SERVICES Albumin 4.3 3.4 - 4.9 [facility] g/dl [facility] SERVICES Total Protein 6.8 6.3 - 8.2 [facility] g/dl [facility] SERVICES Creatinine 0.81 0.52 - 1.04 [facility] mg/dl [facility] SERVICES GFR, Calculated 84 >60 [facility] Comment: ml/min/1.73m2 [facility] LAB[facility]ORY eGFR calculated using CKD-EPI equation for SERVICES non Americans. Multiply eGFR by 1.16 for Americans. BUN 17 10 - 26 mg/dl [facility] LABORATORY SERVICES Calcium 9.7 8.5 - 10.5 [facility] mg/dl [facility] SERVICES Calculated Calcium 9.5 8.5 - 10.5 [facility] mg/dl [facility] SERVICES Glucose, Serum 93 70 - 100 [facility] mg/dl [facility] SERVICES Fasting? YES [facility] LABORATORY SERVICES Specimen Blood specimen (specimen) - Blood Performing Organization Address City/State/ZIP Code Phon e Number [facility] LABORATORY [address] [place] [address] SERVICES COMPLETE BLOOD COUNT AND DIFFERENTIAL (05/18/2019 11:26 EDT) Pathologist Sig nature WBC 6.57 4.0 - 12.4 [facility] LABORATORY SERVICES RBC 4.23 3.86 - 5.04 [facility] M/[facility] LABORATORY SERVICES Hemoglobin 12.5 11.6 - 15.2 [facility] gm/dl LABORATORY SERVICES HCT 38.3 34.9 - 44.4 % [facility] LABORATORY SERVICES MCV 91 81 - 98 fl [facility] LABORATORY SERVICES MCH 29.6 26.7 - 33.3 pg [facility] LABORATORY SERVICES MCHC 32.6 32.1 - 35.9 [facility] gm/dl LABORATORY SERVICES RDW-CV 13.2 <14.7 % [facility] LABORATORY SERVICES RDW-SD 43.8 <50.4 fl [facility] LABORATORY SERVICES PLT 332 141 - 377 K/[facility] LABORATORY SERVICES MPV 10.3 9.5 - 12.7 fl [facility] LABORATORY SERVICES Neutrophils 70.2 % [facility] LABORATORY SERVICES Lymphocytes 22.7 % [facility] LABORATORY SERVICES Monocytes 5.0 % [facility] LABORATORY SERVICES Eosinophils 0.9 % [facility] LABORATORY SERVICES Basophils 0.6 % [facility] LABORATORY SERVICES Immature Grans 0.6 % [facility] LABORATORY SERVICES ABS Neutrophils 4.61 2.20 - 8.85 [facility] K/[facility] LABORATORY SERVICES ABS Lymphs 1.49 1.09 - 3.30 [facility] K/[facility] LABORATORY SERVICES ABS Monocytes 0.33 0.1 - 0.8 [facility] ABS Eosinophils 0.06 0.03 - 0.61 [facility] K/[facility] LABORATORY SERVICES ABS Basophils 0.04 0.01 - 0.11 [facility] LABORATORY SERVICES ABS Immature Grans 0.04 0 - 0.06 /[facility] LABORATORY SERVICES Type of Diff: Automated [facility] LABORATORY SERVICES Specimen Blood specimen (specimen) - Blood Performing Organization Address City/State/[facility] Code Phon e Number [facility] LABOR[facility]ORY [address] [place] [address] SERVICES documented in this encounter Visit Diagnoses Diagnosis Positive MASSIEL (antinuclear antibody) Other and unspecified nonspecific immuno logical findings Chronic fatigue syndrome documented in this encounter Care Teams Pilot Control Operator Helper Relationship Specialty Start Date End Date Cortney Toussaint FNP PCP - General 01/20/19 [address] [place] [address] Ki Evans MD 03/12/18 [address] [place] [address] documented as of this encounter
--- OUTSIDE RECORDS SUMMARY | 2022-05-16 01:31 | XMS_ITS | Encounter Summary ---
:[address] [facility] Address [address] [place] [address] Care Team Providers Name Role Phone Ki Evans MD Primary Care Provider Unknown, Provider Primary Care Provider Ki Evans MD Unavailable Encounter Details Date Type Department Care Team Description 03/11/2018 Results Only [facility]- Dave Mosley FNP [phone] [place] [address] (Wo rk) Social History Tobacco Use Types Packs/Day Years Used Date Never Assessed Sex Assigned at Date Recorded Not on file documented as of this encounter Plan of Treatment Upcoming Encounters Date Type Specialty Care Team Description 05/21/2022 Office Visit Rheumatology Scooter Cowan Chi, MD [address] [facility], [facility], [address] [place], [place] [address] (Wo rk) documented as of this encounter Procedures Procedure Name Priority Date/Time Associated Diagnosis Comme nts PAP TEST- RESULT Routine 03/11/2018 0:00 EDT Resu lts for this ONLY procedure are i n the results section. documented in this encounter Results PAP TEST- RESULT ONLY (03/11/2018 0:00 EDT) Pathology Report: CYTOPATHOLOGY REPORT [facility] Reports generated via electronic interface contain brendon ginal data; SERVICES however they are lacking the format of the original re port. Caution should be taken when reading/interpreting unfo rmatted reports. Name: ? ELOISE BURGOS ? Accession #: ? [id number] ? : ? 1965 (Age: 52) ??F ?Collect Date: ? 03/11/2018 ? Location: ? [facility] ? Receive Date: ? 8 ? Provider: DAVE LAGOS [facility] Copy to: ? Final Report SPECIMEN ADEQUACY ? Satisfactory for Evaluation - transformation zone component present GENERAL CATEGORIZATION ? Negative for Intraepithelial Lesion or Malignan cy ?? Hormonal/Contraceptive status: Intrauterine device Specimen/Source: ??Pap Test, Cervix, ThinPrep Imaging System with manual evaluation Document reviewed and electronically signed by: ? DACIA Ng(ASCP) ? Report ??Date: 03/17/2018 08:45 HPV with Pap Test ? Date Ordered: ? 03/17/2018 ? Status: ?? S igned Out ?Date Complete: ? 03/18/2018 ? By: ??Sys tem Interface ? Date Reported: ? 03/18/2018 ? Interpretation RESULT: Negative for HPV. No E6 or E7 mRNA is detected from HPV types 16,18,31,3 3,35, 39,45,51,52,56,58,59,66, and 68 by psychologist chief media alex amplification. Comments Document reviewed and electronically signed by: ? System Interface ? Report date: 03/18/2018 By the signature above, the attending physician certif ies that he/she has personally conducted a gross and/or microscopic examin ation of the described specimens and rendered or confirmed the above diagnosi s. End of Report Specimen Performing Organization Address City/State/ZIP Code Phon e Number [facility] [address] [place] [address] SERVICES documented in this encounter Visit Diagnoses Not on filedocumented in this encounter Care Teams Strapper Operator Relationship Specialty Start Date End Date Ki Evans MD PCP - General 02/06/09 03/11/18 [address] [place] [address] Unknown, Provider, PCP - General 03/12/18 01/19/19 Ki Evans MD 03/12/18 [address] [place] [address] documented as of this encounter
--- OUTSIDE RECORDS SUMMARY | 2022-05-16 01:31 | XMS_ITS | Encounter Summary ---
:1965 Author Organization [facility] Address [address] [place] [address] Care Team Providers Name Role Phone Unavailable Primary Care Provider Unavailable Encounter Details Date Type Department Care Team Description 01/24/2009 Orders Only [facility] Allyssa Evans MD Laboratory Services - [address] [address] [address] [facility] [place] [address] [phone] Social History Tobacco Use Types Packs/Day Years Used Date Never Assessed Sex Assigned at Date Recorded Not on file documented as of this encounter Plan of Treatment Upcoming Encounters Date Type Specialty Care Team Description 05/21/2022 Office Visit Rheumatology Scooter Cowan Chi, MD 111 [facility], [facility], [address] [place], [place] [address] (Wo rk) documented as of this encounter Procedures Procedure Name Priority Date/Time Associated Comments Diagnosis HPV DETECTION, HIGH Routine 01/24/2009 14:41 Resu lts for this RISK TYPES EDT procedure are i n the results section. CYTOPATHOLOGY Routine 01/24/2009 0:00 Results for this EDT procedure are i n the results section. documented in this encounter Results HUMAN PAPILLOMA VIRUS DNA TEST (01/24/2009 14:41 EDT) Specimen Description Cervix, ThinPrep [facility] Result Positive for one or more of HPV types 16,18,31,33,35,39,45,51,52,56,58,59, or 68. These [facility] high/intermediate risk HPV t ypes are associated with dysplasia and some cervical cancers. LAB Report Status Final [facility] 02/07/2009 LAB Specimen Performing Organization Address City/State/ZIP Code Phon e Number [facility] [address] [place] [address] SERVICES [facility] [address] [place] [address] CYTOPATHOLOGY (01/24/2009 0:00 EDT) Pathology Report: CYTOPATHOLOGY REPORT ? [facility] ? LAB Reports generated via RuffWire interface contain original data; ? however they are lacking the format of the original report. ? Caution should be taken when reading/interpreting unformatted reports. ? Name: ? ELOISE MORRIS ? Accession #: ? [id number] ? : ? 1965 (Age: 43) ??F ?Collect Date: ? 01/24/2009 ? Location: ? [facility] ? Receive Date: ? 01/25/2009 ? Provider: ?ALLYSSA R SAD KIN MD ? Copy to: ? Specimen/Source: ? Pap Test, Cervix/Endocervix, ThinPrep Imaging System ? with manual evaluation ? Last Menstrual Period: ? Other: ? HPVDX - HPV testing requeste d regardless of diagnosis on current ThinPrep Pap ?? test. ? SPECIMEN ADEQUACY ? Satisfactory for Eval uation ? - transformation zone compon ent present ? GENERAL CATEGORIZATION ? Epithelial Cell Abnor mality ? INTERPRETATION ? Squamous Cell Abnorma lity - Atypical squamous cells, undetermined ? significance (ASC-US). ? Endometrial cells present in a woman equal to or greater than age 40. ? EDUCATIONAL NOTES/RECOMMENDA TIONS ? FA recommends sheri wing the 2006 Consensus Guidelines for the Management of Women with Abnormal Cervi [place] Cancer Screening Tests (JLGTD, ? 2007;11(4):201-222). ??Conse nsus guidelines are available online at ? www.ASCCP.org. ? Benign appearing endometrial cells on Pap tests are usually a normal finding in women with regular menstrual cycles, especially if the Pap test was collected ?? during the first half of the menstrual cycle. ? There is data showing that e ndometrial cells on Pap tests may be associated with endometrial/uterine abnormal ities in post menopausal women or in perimenopausal women with abnormal bleeding . ? There is limited data on the significance of benign endometrial cells in post ?? menopausal women on HRT. ??C linical correlation is recommended. ? Note: ??The Pap test is not an accurate test for the screening of endometrial ? lesions and should not be us ed as a follow up in patients with clinical ? suspicion of endometrial pat hology. ? Document reviewed and electr onically signed by: ? HERIBERTO LINDSEY MD [facility] ? Report Date: ??04/27/ 2009 10:36 ? End of Report ? Specimen Performing Organization Address City/State/ZIP Code Phon e Number [facility] [address] [place] [address] SERVICES [facility] [address] [place] [address] documented in this encounter Visit Diagnoses Not on filedocumented in this encounter
--- OUTSIDE RECORDS SUMMARY | 2022-05-16 01:31 | XMS_ITS | Encounter Summary ---
:1965 Author Organization [facility] Address [address] [place] [address] Care Team Providers Name Role Phone Ki Evans MD Primary Care Provider Encounter Details Date Type Department Care Team Description 12/20/2012 Results Only [facility] Ez Sharif, DRILLING FLUIDS SPECIALIST Laboratory Services - [address] [facility] [place], [place] [address] [address] [place], [place] [address] [phone] Social History Tobacco Use Types Packs/Day Years Used Date Never Assessed Sex Assigned at Date Recorded Not on file documented as of this encounter Plan of Treatment Upcoming Encounters Date Type Specialty Care Team Description 05/21/2022 Office Visit Rheumatology Scooter Cowan Chi, MD 111 [facility], [facility], [address] [place], [place] [address] (Wo rk) documented as of this encounter Procedures Procedure Name Priority Date/Time Associated Diagnosis Comme nts PAP TEST- RESULT Routine 12/20/2012 0:00 EDT Resu lts for this ONLY procedure are i n the results section. documented in this encounter Results PAP TEST- RESULT ONLY (12/20/2012 0:00 EDT) Pathology Report: CYTOPATHOLOGY REPORT [facility] Reports generated via electronic interface contain brendon ginal data; however they are lacking the format of the original re port. Caution should be taken when reading/interpreting unfo rmatted reports. Name: ? ELOISE MORRIS ? Accession #: ? [id number] ? : ? 1965 (Age: 47) ??F ?Collect Da te: ? 12/20/2012 ? Location: ? [facility] ? Receive Date: ? 013 ? Provider: ANSHUL SHARIF DRILLING FLUIDS SPECIALIST Copy to: ? Final Report SPECIMEN ADEQUACY ? Satisfactory for Evaluation - transformation zone component present GENERAL CATEGORIZATION ? Negative for Intraepithelial Lesion or Malignan cy INTERPRETATION ? Reactive cellular areli nges associated with inflammation present (includes repair). Last Menstrual Period: 12/03/12 Previous Gynecologic Pathology: HPV: + 2009 Specimen/Source: ??Pap Test, Cervix/Endocervix, ThinPr ep Imaging System with manual evaluation Document reviewed and electronically signed by: ? GISELA SHETTY MD ? Report ??Date: 12/23/2012 15:31 HPV with Pap Test ? Date Ordered: ? 12/23/2012 ? Status: ?? Signed Out ?Date Complete: ? 12/27/2012 ? By: ??S ystem Interface ? Date Reported: ? 12/27/2012 ? Interpretation RESULT: Negative for HPV. No E6 or E7 mRNA is detected from HPV types 16,18,31,3 3,35, 39,45,51,52,56,58,59,66, and 68 by rn midwife media alex pearson. Comments Document reviewed and electronically signed by: ? System Interface ? Report date: 12/27/2012 By the signature above, the attending physician certif ies that he/she has personally conducted a gross and/or microscopic examin ation of the described specimens and rendered or confirmed the above diagnosi s. End of Report Specimen Performing Organization Address City/State/ZIP Code Phon e Number [facility] [address] [place] [address] SERVICES [facility] [address] [place] [address] documented in this encounter Visit Diagnoses Not on filedocumented in this encounter Care Teams Orchid Grower Relationship Specialty Start Date End Date Ki Evans MD PCP - General 02/06/09 03/11/18 [place] [address] documented as of this encounter
--- OUTSIDE RECORDS SUMMARY | 2022-05-16 01:31 | XMS_ITS | Encounter Summary ---
:1965 Author Organization [facility] Address [address] [place] [address] Care Team Providers Name Role Phone Ki Evans MD Primary Care Provider Encounter Details Date Type Department Care Team Description 10/22/2007 Results Only [facility] - Shelby Gomez MD conversion [address] [place], [place] [id number] Social History Tobacco Use Types Packs/Day Years Used Date Never Assessed Sex Assigned at Date Recorded Not on file documented as of this encounter Plan of Treatment Upcoming Encounters Date Type Specialty Care Team Description 05/21/2022 Office Visit Rheumatology Scooter Cowan Chi, MD [address] [facility], [address] [place], [place] [address] (Wo rk) documented as of this encounter Procedures Procedure Name Priority Date/Time Associated Diagnosis Comme nts CYTOPATHOLOGY Routine 10/22/2007 0:00 EST Results for this procedure are i n the results section . documented in this encounter Results CYTOPATHOLOGY (10/22/2007 0:00 EST) Pathology Report: CYTOPATHOLOGY REPORT [facility] Reports generated via electronic interface contain brendon ginal data; however they are lacking the format of the original re port. Caution should be taken when reading/interpreting unfo rmatted reports. Name: ? ELOISE MORRIS ? Accession #: ? [id number] : ? 1965 (Age: 42) ??F ?Collect Date: ? 10/12 Location: ? [facility] ? Receive Date : ? 10/26/2007 Provider: ?SHELBY SMITH Copy to: ? Specimen/Source: ? ThinPrep Pap Test, Cervix/Endocervix, processed on [employer] ThinPrep Imaging System, with manual evaluation Last Menstrual Period: ? 10/15/07 Other: ? HPVA - HPV testing requested if ASC-US on the current ThinPrep Pap test. ? SPECIMEN ADEQUACY ? Satisfactory for Evaluation - transformation zone component present GENERAL CATEGORIZATION ? Negative for Intraepithelial Lesion or Malignan cy ? Document reviewed and electronically signed by: ? DACIA Barreto(ASCP) ? Report Date: ??10/29/2007 13:39 End of Report Specimen Performing Organization Address City/State/ZIP Code Phon e Number [facility] [address] [place] [address] SERVICES [facility] [address] [place] [address] documented in this encounter Visit Diagnoses Not on filedocumented in this encounter Care Teams Hearing Care Professional Relationship Specialty Start Date End Date Ki Evans MD PCP - General 02/06/09 03/11/18 [address] [place] [address] documented as of this encounter
--- OUTSIDE RECORDS SUMMARY | 2022-05-16 01:31 | XMS_ITS | Encounter Summary ---
:1965 Author Organization [facility] Address [address] [place] [address] Care Team Providers Name Role Phone Allyssa Woodward MD Primary Care Provider Encounter Details Date Type Department Care Team Description 04/04/2005 Results Only [facility] - Allyssa Jeff MD conversion [address] [place], [place] [address] [place] [address] [phone] Social History Tobacco Use Types Packs/Day Years Used Date Never Assessed Sex Assigned at Date Recorded Not on file documented as of this encounter Plan of Treatment Upcoming Encounters Date Type Specialty Care Team Description 05/21/2022 Office Visit Rheumatology Scooter Cowan Chi, MD 111 [facility], [address] [place], [place] [address] (Wo rk) documented as of this encounter Procedures Procedure Name Priority Date/Time Associated Diagnosis Comme nts CYTOPATHOLOGY Routine 04/04/2005 0:00 EDT Results for this procedure are i n the results section . documented in this encounter Results CYTOPATHOLOGY (04/04/2005 0:00 EDT) Pathology Report: CYTOPATHOLOGY REPORT [facility] Reports generated via electronic interface contain brendon ginal data; however they are lacking the format of the original re port. Caution should be taken when reading/interpreting unfo rmatted reports. Name: ? ELOISE MORRIS ? Accession #: ? [id number] : ? 1965 (Age: 39) ??F ?Collect Date: ? 03/13 Location: ? [facility] ? Receive Date : ? 04/08/2005 Provider: ?ALLYSSA WOODWARD MD Copy to: ? Specimen/Source: ?ThinPrep Pap Test, Cervix Last Menstrual Period: ? Menstrual/ Status: ? Post ? SPECIMEN ADEQUACY ? Satisfactory for Evaluation - transformation zone component present GENERAL CATEGORIZATION ? Negative for Intraepithelial Lesion or Malignan cy ? Document reviewed and electronically signed by: ? Shahla Lowe, [facility](ASCP) ? Report Date: ??04/16/2005 10:48 End of Report Specimen Performing Organization Address City/State/ZIP Code Phon e Number [facility] [address] [place] [address] SERVICES [facility] [address] [place] [address] documented in this encounter Visit Diagnoses Not on filedocumented in this encounter Care Teams Environmental Officer Relationship Specialty Start Date End Date Allyssa Woodward MD PCP - General 02/06/09 03/11/18 [address] [place] [address] documented as of this encounter
--- OUTSIDE RECORDS SUMMARY | 2022-05-16 01:31 | XMS_ITS | Encounter Summary ---
:[address] [facility] Address [address] [place] [address] Care Team Providers Name Role Phone Norbert Cortney FABIOLA Primary Care Provider Ki Evans MD Unavailable Encounter Details Date Type Department Care Team Description 05/18/2019 Hospital Encounter [facility] - Scooter Cowan Chi, MD [address] [address] [address], [place] [address] (Wo rk) Social History Tobacco Use Types [...] making decisions? documented as of this encounter Discharge Diagnoses Diagnosis R76.8 Other specified abnormal immunolog ical findings in serum-R76.8[ICD-10-CM] R53.82 Chronic fatigue, unspecified-R53. 82[ICD-10-CM] documented in this encounter Medications at Time of Discharge Medication Sig Dispensed Refills Start Date End Date acetaminophen (TYLENOL) 500 Take 500 mg by 0 mg tablet mouth every 6 hours as needed for Pain. VAISHALI ASPIRIN ORAL Take 81 mg by 0 mouth. calcium carbonate 500 mg/5 mL Take 1,200 mg by 0 (1,250 mg/5 mL) suspension mouth daily. ergocalciferol, vitamin D2, Take 1,000 Units 0 (VITAMIN D ORAL) by mouth. glucosamine HCl/chondroitin Take 1,500 mg by 0 lipscomb (GLUCOSAMINE-CHONDROITIN mouth. ORAL) Otczn-5-CXF-EPA-Fish Oil Take 1,200 Caps 0 (FISH OIL) 1,000 mg (120 by mouth. mg-180 mg) capsule hydroxychloroquine Take 200 mg by 0 (PLAQUENIL) 200 mg tablet mouth daily. documented as of this encounter Discharge Disposition Disposition Code Departure Means Destination Auto Discharge Home documented in this encounter Plan of Treatment Upcoming Encounters Date Type Specialty Care Team Description 05/21/2022 Office Visit Rheumatology Scooter Cowan Chi, MD 111 [facility], [address] [place], [place] [address] (Wo rk) documented as of this encounter Visit Diagnoses Not on filedocumented in this encounter Care Teams Filter Assembler Relationship Specialty Start Date End Date Cortney Toussaint FNP PCP - General 01/20/19 [address] [place] [address] Ki Evans MD 03/12/18 [address] [place] [address] documented as of this encounter
[2022-05-16 12:22] LABS: Abs Immature Grans 0.02 10^3/uL (0.0-0.06); Absolute Basophil Count 0.06 10^3/uL (0.0-0.2); Absolute Eosinophil Count 0.12 10^3/uL (0.0-0.7); Absolute Lymphocyte Count 1.91 10^3/uL (1.2-3.4); Absolute Monocyte Count 0.38 10^3/uL (0.1-0.8); Absolute Neutrophil Count 3.39 10^3/uL (1.2-6.7); HCT 39.4 % (36.0-46.0); Immature Grans % 0.3; Lymphocytes % 32.5; MCH 30.2 pg (27.0-33.0); MCV 91 fL (80-95); MPV 10.9 fL (8.0-11.0); Monocytes % 6.5; Neutrophils % 57.7; Platelet Count 260 10^3/uL (130-400); RBC 4.31 10^6/uL (3.93-5.22); WBC 5.88 10^3/uL (4.4-10.8)
[2022-05-16 12:28] LABS: ESR 2 mm/hr (0-30)
[2022-05-16 12:43] LABS: ALT 46 U/L (14-59); AST 29 U/L (15-37); Albumin 3.9 g/dL (3.4-5.0); Alkaline Phosphatase 67 U/L (46-116); Anion Gap 5.8 mmol/L (3-11); BUN 19 mg/dL (7-18); Bilirubin, Total 0.6 mg/dL (0.2-1.0); C-Reactive Protein 0.09 mg/dL (0.0-0.3); CO2 27.2 mmol/L (21.0-32.0); CREATININE 0.9 mg/dL (0.55-1.02); Calcium 8.7 mg/dL (8.5-10.1); Chloride 103 mmol/L (98-107); Glucose 81 mg/dL (74-106); Potassium 3.9 mmol/L (3.5-5.1); Sodium 136 mmol/L (136-145); Total Protein 6.9 g/dL (6.4-8.2)
[2022-05-19 09:34] LABS: Thyroglobulin Antibody <15 U/mL (<=60); Thyroperoxidase Antibody 66 U/mL (<=60)
== END 2022-05-16 01:09 | disposition home or self-care (01) ==
LOC: LOS 01:08
PROVIDERS: PCP Nurse Practitioner Family; Visit Provider Internal Medicine Rheumatology
DX: E06.9 Thyroiditis, unspecified (principal); M25.50 Pain in unspecified joint
CPT/HCPCS: 36415; 80053; 85652; 86376; 84443; 85025; 86140

== ENCOUNTER → 2022-10-03 00:29 | Outpatient (CLI) | payer BC, SELFPAY ==
--- NOTE | 2022-10-03 11:08 | DI.MAMMO_ITS ---
Exam(s) MAMMO SCREENING EXAM: MAMMO SCREENING CLINICAL HISTORY: [facility]ENING, [facility], Z00.00 TECHNIQUE: Bilateral full field digital CC and MLO mammographic images were obtained with 3D tomosyn thesis and utilizing computer aided detection (CAD). COMPARISON: Available for comparison. FINDINGS: Masses/Architectural Distortion: None seen. Microcalcifications: No suspicious pleomorphic-type are seen. Skin Thickening/Nipple Retraction: None. IMPRESSION: 1. No significant interval change with no specific features of malignancy noted. 2. Unless there is more urgent need, screening mammography is recommended, as per [employer] guidelines. BI-RADS Category 1 - Negative Breast Density - Category B - Scattered areas of fibroglandular density Breast density category C or D implies that the patient has dense breast tissue. Dense breast tissue is very common and is not abnormal but dense breast tissue can make it harder to find cancer on a ma mmogram. Also, dense breast tissue may increase their breast cancer risk. This information about the result of the mammogram report was provided to the patient to raise their awareness. Use this report when you speak with the patient about their risks for breast cancer, which includes their family hist ory. At that time, you may recommend for more screening tests (Ultrasound or MRI) as they might be us eful based on their risk. A negative radiographic report should not delay biopsy if a dominant or clinically suspicious mass is present. Up to ten percent of cancers are not identified on mammography. A negative report may reinforce clinical impression. Adenosis and dense breasts may obscure an underlying neoplasm. False positive reports average 6 to 10%. Patient will receive a letter notifying them of these results.
== END ==
PROVIDERS: PCP Nurse Practitioner Family; Visit Provider Nurse Practitioner Family
DX: Z00.00 Encounter for general adult medical examination without abnormal findings (principal); Z12.31 Encounter for screening mammogram for malignant neoplasm of breast
CPT/HCPCS: 77063; 77067

== ENCOUNTER 2023-07-01 17:54 | Outpatient (REF) | payer BC, SELFPAY ==
--- NOTE | 2023-07-01 16:30 | PAPFT_PTH ---
PATIENT: Eloise Burgos LOC: [facility]#:[id number] AGE/SX: 57/F ROOM: RE07/01/[address]: Karsten Dickson : 1965 BED: DIS: 07/01/2023 SPEC #: [id number] RECD: 07/01/23 19:08 STATUS: SWEETIE RERangel #: [id number] ANTON: 07/01/23 16:[address]: Karsten Dickson DEPT: [facility] Cytology RECD BY: Bailey Corona ENTERED: 07/01/23 19:08 SP TYPE: PAPFT OT DR: None Tissues: 1 - CX/ENDOCX FOR PAP SMEARS Procedures: PAP THIN PREP/[facility] Screening HPV DNA PROBE Comments: [id number]
[2023-07-01 19:38] LABS: Calculated LDL 101 mg/dL (<100); Cholesterol 220 mg/dL (<200); HDL Cholesterol 110 mg/dL (40-60); Triglyceride 48 mg/dL (<150)
[2023-07-03 10:03] LABS: Hepatitis C Ab w Rflx HCV PCR Negative (Negative)
== END 2023-07-01 17:55 | disposition home or self-care (01) ==
LOC: NCHCN 17:54
PROVIDERS: Visit Provider Family Medicine
DX: Z00.00 Encounter for general adult medical examination without abnormal findings (principal); Z13.220 Encounter for screening for lipoid disorders; Z11.59 Encounter for screening for other viral diseases; Z12.4 Encounter for screening for malignant neoplasm of cervix; Z11.51 Encounter for screening for human papillomavirus (HPV)
CPT/HCPCS: 80061; 86803; 88142; 87624

== ENCOUNTER 2024-11-24 10:56 | Outpatient (CLI) | payer BC, SELFPAY ==
[2024-11-24 11:01] LABS: Abs Immature Grans 0.02 10^3/uL (0.0-0.06); Absolute Basophil Count 0.05 10^3/uL (0.0-0.2); Absolute Lymphocyte Count 1.37 10^3/uL (1.2-3.4); Absolute Monocyte Count 0.27 10^3/uL (0.1-0.8); Absolute Neutrophil Count 4.26 10^3/uL (1.2-6.7); Basophils % 0.8 %; Eosinophils % 1.6 %; HCT 40.5 % (36.0-46.0); HGB 13.4 g/dL (11.2-15.7); Immature Grans % 0.3 %; Lymphocytes % 22.6 %; MCH 30.5 pg (27.0-33.0); MCHC 33.1 % (32.0-36.0); MCV 92 fL (80-95); MPV 9.7 fL (8.0-11.0); Monocytes % 4.4 %; Neutrophils % 70.3 %; Platelet Count 265 10^3/uL (130-400); RBC 4.39 10^6/uL (3.93-5.22); RDW-SD 44.2 fL; WBC 6.07 10^3/uL (4.4-10.8)
[2024-11-24 11:21] LABS: Creatine Kinase 100 U/L (26-192); NT-proBNP 141 pg/mL (<300)
[2024-11-24 11:25] LABS: Troponin I < 4 ng/L (<or=51)
[2024-11-24 21:07] LABS: CRP, High Sensitivity 0.56 mg/L (See Note)
[2024-11-27 08:58] LABS: Myoglobin, S 35 mcg/L (0 - 58)
== END 2024-11-24 10:57 | disposition home or self-care (01) ==
LOC: LBO 10:57
PROVIDERS: Visit Provider Nurse Practitioner Family
DX: R09.89 Other specified symptoms and signs involving the circulatory and respiratory systems (principal)
CPT/HCPCS: 36415; 82550; 86141; 83874; 83880; 84484; 85025; 86140

== ENCOUNTER 2025-05-04 01:06 | Outpatient (CLI) | payer BC, SELFPAY ==
--- NOTE | 2025-05-04 | DI.MRI_ITS ---
Exam(s) MR CERVICAL SPINE WO EXAM: MR CERVICAL SPINE WO CLINICAL HISTORY: MIGRAINE G43.909 R/O CHIARI MALFORMATION TECHNIQUE: Multiplanar multisequence MRI of the cervical spine was performed without intravenous contrast. COMPARISON: CT CT HEAD WO from 02/21/2025 FINDINGS: BONES: Vertebral body heights are maintained. Alignment is normal. Bone marrow signal intensity is within normal limits. CERVICAL CORD: The cerebellar tonsils lie at the level of the foramen magnum and have a normal configuration. There is no evidence of crowding of the cerebellum. The cervical cord is normal size and signal intensity. SOFT TISSUES: Unremarkable. C2-3: No disc herniation or bulge is identified. No evidence of neural foraminal narrowing. No significant central canal stenosis. C3-4: No disc herniation or bulge is identified. There are facet osteophytes which causes moderate right neural foraminal narrowing. No significant central canal stenosis. C4-5: No disc herniation or bulge is identified. No evidence of neural foraminal narrowing. No significant central canal stenosis. C5-6: There is mild loss of disc height and broad-based disc osteophytes which mildly encroach into the neural foramen. No significant central canal stenosis. C6-7: There is yldo-jv-ylhbjfgg narrowing of the C6-7 disc space. There are endplate osteophytes projecting circumferentially causing moderate bilateral neural foraminal narrowing. No significant central canal stenosis. C7-T1: No disc herniation or bulge is identified. No evidence of neural foraminal narrowing. No significant central canal stenosis. IMPRESSION: No evidence of Chiari malformation. Degenerative facet osteophytes encroach on the right neural foramen at C3-4. Mild bilateral neural foraminal narrowing at C5-6 secondary to disc osteophytes. Moderate bilateral neural foraminal narrowing at C6-7 secondary to encroachment by disc osteophytes. DATA REPOSITORY:
== END 2025-05-04 01:26 ==
LOC: DI 01:06
PROVIDERS: PCP Nurse Practitioner Family; Visit Provider Nurse Practitioner Family
DX: G43.909 Migraine, unspecified, not intractable, without status migrainosus (principal); M48.02 Spinal stenosis, cervical region
CPT/HCPCS: 72141

== ENCOUNTER 2025-06-15 11:12 | Outpatient (CLI) | payer BC, SELFPAY ==
--- NOTE | 2025-06-15 05:15 | DI.MRI_ITS ---
Exam(s) MR BRAIN WO EXAM: MR BRAIN WO CLINICAL HISTORY: abnormal CTH,cva,i63.9 TECHNIQUE: Multiplanar multisequence MRI of the brain was performed. COMPARISON: CT CT HEAD WO from 02/21/2025 FINDINGS: VENTRICLES AND EXTRA AXIAL SPACES: Normal in size and morphology for the patient's age. No dilatation of the left lateral ventricle. MIDLINE SHIFT: None. CEREBRAL PARENCHYMA: No focus of restricted diffusion to suggest acute infarct. No space-occupying lesion identified. As seen on the recent CT, there is a small area of low signal on FLAIR images adjacent to the frontal horn of the left lateral ventricle represent and a remote lacunar infarct. The remainder of the brain has a normal appearance, without significant white matter changes. No significant atrophy. BRAINSTEM/CEREBELLUM: Normal. VISUALIZED PARANASAL SINUSES: Small mucous retention cyst at the floor of the left maxillary sinus. MASTOIDS:Clear. Vasculature: Normal flow void. PITUITARY GLAND: Unremarkable. ORBITS: Unremarkable. IMPRESSION: Small lacunar infarct adjacent to the frontal horn of the left lateral ventricle. DATA REPOSITORY:
== END 2025-06-15 11:32 ==
LOC: DI 11:12
PROVIDERS: PCP Nurse Practitioner Family; Visit Provider Psychiatry & Neurology Neurology
DX: I63.9 Cerebral infarction, unspecified (principal)
CPT/HCPCS: 70551

== ENCOUNTER 2025-06-19 08:02 | Outpatient (CLI) | payer BC, SELFPAY | END 2025-06-19 08:03 | disposition home or self-care (01) | PROVIDERS: PCP Nurse Practitioner Family; Visit Provider Psychiatry & Neurology Neurology | DX: I63.9 Cerebral infarction, unspecified (principal) | CPT/HCPCS: 93270 ==

== ENCOUNTER 2025-07-20 09:14 | Outpatient (CLI) | payer BC, SELFPAY ==
--- NOTE | 2025-07-20 11:35 | W.CARDEVENT ---
Date of service: 07/20/25 Time of Service: 11:35 Cardiac Event Recorder Referring Provider:: Fatuma Corea Indications:: TIA Cardiac Event Note: This is a cardiac event monitor. Patient was monitored for 24 days and 12 hours. Rhythm throughout was sinus. Average heart rate overall was 81. There was no bradycardia. Maximum heart rate was 107 There were no significant ventricular dysrhythmias There was no atrial fibrillation, no high-grade AV block, no pauses greater than 3 seconds. There were no apparent patient symptoms
== END 2025-07-20 09:15 | disposition home or self-care (01) ==
LOC: CARDOPNVT 09:14
PROVIDERS: PCP Nurse Practitioner Family; Visit Provider Internal Medicine Cardiovascular Disease
DX: G45.9 Transient cerebral ischemic attack, unspecified (principal)
CPT/HCPCS: 93272

== ENCOUNTER → 2025-09-18 00:47 | Outpatient (CLI) | payer BC, SELFPAY ==
--- NOTE | 2025-09-18 | DI.MAMMO_ITS ---
Exam(s) MAMMO SCREENING EXAM: MAMMO SCREENING CLINICAL HISTORY: ANNUAL EXAM Z00.00 SCREENING MAMMO TECHNIQUE: Mammograms were interpreted according to the usual protocol including computer analysis with CAD system, tomosynthesis and C-view imaging. COMPARISON: 2017 through 2021 FINDINGS: The breasts are composed of scattered fibroglandular densities, Breast Density category B. No suspicious masses or suspicious microcalcifications are seen. No skin thickening or abnormal axillary lymph nodes are seen. There has been no significant change from prior exams. IMPRESSION: BI-RADS Category 1, Negative mammogram Yearly screening mammography is recommended. Breast Density - Category B - There are scattered areas of fibroglandular density. Breast density Category C or D implies that the patient has dense breast tissue. Dense breast tissue can make it harder to find cancer on a mammogram. Dense breast tissue is also associated with an increased risk of breast cancer. This information about the result of the mammogram report was provided to the patient to raise their awareness. Use this report when you speak with the patient about their risks for breast cancer, which includes their family history. At that time, you may recommend additional screening tests (Ultrasound or MRI) as these tests may add significant information. A negative radiographic report should not delay biopsy if a dominant or clinically suspicious mass is present. Up to ten percent of cancers are not identified on mammography. A negative report may reinforce clinical impression. Adenosis and dense breasts may obscure an underlying neoplasm. False positive reports average 6 to 10%. Patient will receive a letter notifying them of these results.
== END ==
LOC: DI 00:47
PROVIDERS: PCP Nurse Practitioner Family; Visit Provider Nurse Practitioner Family
DX: Z12.31 Encounter for screening mammogram for malignant neoplasm of breast (principal); R92.323 Mammographic fibroglandular density, bilateral breasts
CPT/HCPCS: 77063; 77067

== ENCOUNTER 2025-09-25 09:58 | Outpatient (REF) | payer BC, SELFPAY | END 2025-09-25 09:59 | disposition home or self-care (01) | LOC: LBN 09:58 | PROVIDERS: PCP Nurse Practitioner Family; Visit Provider Obstetrics & Gynecology | DX: Z12.4 Encounter for screening for malignant neoplasm of cervix (principal) | CPT/HCPCS: 88142 ==